=== PATIENT | female | born 1980 | race Caucasian/White ===

== ENCOUNTER 2020-01-31 17:08 | Emergency (ER) | payer MEDICAID ==
[~2020-01-31] VITALS: Ht 157.4 cm; Wt 77.6 kg
[2020-01-31] MEDS ORDERED: ROBAXIN-750750 MG PO (20:44)
[2020-01-31] MEDS ORDERED: IBUPROFEN600 MG PO (20:44)
== END 2020-01-31 21:00 | disposition home or self-care (01) ==
LOC: ED 17:08
DX: M43.6 Torticollis (principal); I10 Essential (primary) hypertension; E11.9 Type 2 diabetes mellitus without complications; Z88.8 Allergy status to other drugs, medicaments and biological substances; Z88.0 Allergy status to penicillin; Z98.890 Other specified postprocedural states; Z86.73 Personal history of transient ischemic attack (TIA), and cerebral infarction without residual deficits

== ENCOUNTER 2021-03-27 09:48 | Emergency (ER) | payer OTHER ==
[~2021-03-27] VITALS: Wt 79.8 kg
[~2021-03-27 09:48] MED LIST: IBUPROFEN600 MG PO; ROBAXIN-750750 MG PO
[2021-03-27] MEDS ORDERED: PREDNISONE20 M1 PO (14:25)
== END 2021-03-27 14:31 | disposition home or self-care (01) ==
LOC: ED 09:48
DX: M25.512 Pain in left shoulder (principal); F17.200 Nicotine dependence, unspecified, uncomplicated; Z88.0 Allergy status to penicillin; Z88.8 Allergy status to other drugs, medicaments and biological substances

== ENCOUNTER 2021-04-14 16:46 | Emergency (ER) | payer OTHER ==
[~2021-04-14] VITALS: Ht 157.4 cm; Wt 76.7 kg
[~2021-04-14 16:46] MED LIST changes: +PREDNISONE20 M1 PO
[2021-04-14 19:30] LABS: BASO % 0.3 % (0.0-1.0); EOS # 0.1 10*3/uL (0.0-0.4); EOS % 0.5 % (1.0-4.0); HEMATOCRIT 41.3 % (37.0-47.0); LYMPH # 3.4 10*3/uL (1.3-4.4); LYMPH % 30.8 % (27.0-41.0); MEAN CELL VOLUME 84.6 fl (81.0-99.0); MEAN CORPUSCULAR HGB 30.1 pg (27.0-31.0); MEAN CORPUSCULAR HGB CONC 35.6 g/dl (33.0-37.0); MEAN PLATELET VOLUME 10.4 fl (9.6-12.3); MONO # 0.6 10*3/uL (0.1-1.0); MONO % 5.6 % (3.0-9.0); NEUT # 6.8 10*3/uL (2.3-7.9); NEUT % 62.2 % (47.0-73.0); PLATELET COUNT AUTOMATED 224 10*3/uL (130-400); RED BLOOD COUNT 4.88 10*6/uL (4.10-5.10); RED CELL DISTRI WIDTH 12.4 % (0-14.5); WHITE BLOOD COUNT 10.9 10*3/uL (4.8-10.8)
[2021-04-14 19:54] LABS: ALBUMIN 3.4 gm/dl (3.1-4.5); ALKALINE PHOSPHATASE 100 U/L (45-117); BUN 5 mg/dl (7-24); CHLORIDE 102 mmol/L (98-107); CREATININE 0.67 mg/dL (0.55-1.02); POTASSIUM 3.4 mmol/L (3.5-5.1); SGOT/AST 14 IU/L (3-35); SGPT/ALT 29 U/L (12-78); SODIUM 133 mmol/L (136-145); TOTAL PROTEIN 7.1 gm/dL (6.4-8.2)
[2021-04-14] MEDS ORDERED: IBUPROFEN600 MG PO (23:06)
== END 2021-04-14 23:22 | disposition home or self-care (01) ==
LOC: ED 16:46
PROVIDERS: Physician Assistant
DX: S90.01XA Contusion of right ankle, initial encounter (principal); E11.65 Type 2 diabetes mellitus with hyperglycemia; W22.03XA Walked into furniture, initial encounter; Y93.89 Activity, other specified; Y92.89 Other specified places as the place of occurrence of the external cause; Y99.8 Other external cause status

== ENCOUNTER → 2021-04-27 | Outpatient (CLI) | payer OTHER | END | disposition home or self-care (01) | LOC: COVID19 16:33 | PROVIDERS: ATTEND Internal Medicine | DX: Z20.822 Contact with and (suspected) exposure to COVID-19 (principal) ==

== ENCOUNTER 2021-07-08 19:14 | Emergency (ER) | payer OTHER ==
[2021-07-08 19:42] LABS: BASO % 0.3 % (0.0-1.0); EOS # 0.1 10*3/uL (0.0-0.4); EOS % 0.5 % (1.0-4.0); HEMATOCRIT 42.1 % (37.0-47.0); LYMPH # 3.2 10*3/uL (1.3-4.4); LYMPH % 27.7 % (27.0-41.0); MEAN CELL VOLUME 83.2 fl (81.0-99.0); MEAN CORPUSCULAR HGB 29.6 pg (27.0-31.0); MEAN CORPUSCULAR HGB CONC 35.6 g/dl (33.0-37.0); MEAN PLATELET VOLUME 10.6 fl (9.6-12.3); MONO # 0.7 10*3/uL (0.1-1.0); NEUT # 7.6 10*3/uL (2.3-7.9); NEUT % 65.2 % (47.0-73.0); PLATELET COUNT AUTOMATED 236 10*3/uL (130-400); RED BLOOD COUNT 5.06 10*6/uL (4.10-5.10); RED CELL DISTRI WIDTH 11.5 % (0-14.5); WHITE BLOOD COUNT 11.7 10*3/uL (4.8-10.8)
[2021-07-08 19:53] LABS: ACT PARTIAL THROMBO TIME 26.1 SECONDS (20.0-32.1)
[2021-07-08 19:58] LABS: ALKALINE PHOSPHATASE 77 U/L (45-117); BUN 7 mg/dl (7-24); CHLORIDE 102 mmol/L (98-107); CREATININE 0.88 mg/dL (0.55-1.02); POTASSIUM 3.3 mmol/L (3.5-5.1); SGOT/AST 13 IU/L (3-35); SGPT/ALT 24 U/L (12-78); SODIUM 133 mmol/L (136-145); TOTAL PROTEIN 7.1 gm/dL (6.4-8.2)
== END 2021-07-09 01:02 | disposition home or self-care (01) ==
LOC: ED 19:14
PROVIDERS: Emergency Medicine
DX: R07.9 Chest pain, unspecified (principal); E11.9 Type 2 diabetes mellitus without complications; I10 Essential (primary) hypertension; Z88.0 Allergy status to penicillin; Z88.8 Allergy status to other drugs, medicaments and biological substances

== ENCOUNTER 2021-10-13 16:55 | Emergency (ER) | payer OTHER | END 2021-10-13 20:56 | disposition home or self-care (01) | LOC: ED 16:55 | DX: S93.401A Sprain of unspecified ligament of right ankle, initial encounter (principal); Z88.0 Allergy status to penicillin; Z88.8 Allergy status to other drugs, medicaments and biological substances; W18.39XA Other fall on same level, initial encounter; Y93.89 Activity, other specified; Y92.89 Other specified places as the place of occurrence of the external cause; Y99.8 Other external cause status ==

== ENCOUNTER 2021-12-18 18:20 | Emergency (ER) | payer OTHER ==
[~2021-12-18] VITALS: Ht 157.4 cm; Wt 79.8 kg
== END 2021-12-18 19:00 | disposition home or self-care (01) ==
LOC: ED 18:20
DX: S80.261A Insect bite (nonvenomous), right knee, initial encounter (principal); Z88.0 Allergy status to penicillin; Z88.8 Allergy status to other drugs, medicaments and biological substances; W57.XXXA Bitten or stung by nonvenomous insect and other nonvenomous arthropods, initial encounter; Y93.89 Activity, other specified; Y92.89 Other specified places as the place of occurrence of the external cause; Y99.9 Unspecified external cause status

== ENCOUNTER 2022-01-02 19:44 | Emergency (ER) | payer OTHER ==
[~2022-01-02] VITALS: Ht 157.4 cm; Wt 81.6 kg
== END 2022-01-02 22:31 | disposition home or self-care (01) ==
LOC: ED 19:44
DX: S83.8X1A Sprain of other specified parts of right knee, initial encounter (principal); Z88.0 Allergy status to penicillin; Z88.8 Allergy status to other drugs, medicaments and biological substances; X50.1XXA Overexertion from prolonged static or awkward postures, initial encounter; Y93.01 Activity, walking, marching and hiking; Y92.89 Other specified places as the place of occurrence of the external cause; Y99.9 Unspecified external cause status

== ENCOUNTER 2022-01-06 16:25 | Emergency (ER) | payer OTHER ==
[~2022-01-06] VITALS: Wt 81.6 kg
[2022-01-06] MEDS ORDERED: NAPROSYN500 MG PO (19:17)
== END 2022-01-06 19:49 | disposition home or self-care (01) ==
LOC: ED 16:25
DX: S83.91XA Sprain of unspecified site of right knee, initial encounter (principal); Z88.8 Allergy status to other drugs, medicaments and biological substances; Z88.0 Allergy status to penicillin; W19.XXXA Unspecified fall, initial encounter; Y93.89 Activity, other specified; Y92.89 Other specified places as the place of occurrence of the external cause; Y99.8 Other external cause status

== ENCOUNTER 2022-01-09 19:52 | Emergency (ER) | payer OTHER ==
[~2022-01-09 19:52] MED LIST changes: +NAPROSYN500 MG PO
[2022-01-09] MEDS ORDERED: SEPTDS PO (20:29)
[2022-01-09] MEDS ORDERED: CEPHALEXIN500 M1 PO (20:29)
== END 2022-01-09 20:46 | disposition home or self-care (01) ==
LOC: ED 19:52
DX: L02.214 Cutaneous abscess of groin (principal); Z88.0 Allergy status to penicillin; Z88.8 Allergy status to other drugs, medicaments and biological substances

== ENCOUNTER 2022-02-16 17:03 | Emergency (ER) | payer OTHER ==
[~2022-02-16] VITALS: Ht 157.4 cm; Wt 84.4 kg
[~2022-02-16 17:03] MED LIST changes: +ASPIRIN ADULT L81 M1 PO; +CEPHALEXIN500 M1 PO; +HUMALOG100 UNIT/1 SC; +LANTUS SOL100 UNIT/1 SC; +PREDNISONE50 MG PO; +SEPTDS PO; +VITAMIN D325 MCG PO; +ZITHROMAX500 MG PO
== END 2022-02-16 19:36 | disposition home or self-care (01) ==
LOC: ED 17:03
DX: M79.641 Pain in right hand (principal); Z88.0 Allergy status to penicillin; Z88.8 Allergy status to other drugs, medicaments and biological substances; Z98.51 Tubal ligation status; Z98.890 Other specified postprocedural states

== ENCOUNTER 2022-03-27 14:59 | Emergency (ER) | payer OTHER ==
[~2022-03-27] VITALS: Ht 157.4 cm; Wt 87.5 kg
== END 2022-03-27 17:14 | disposition home or self-care (01) ==
LOC: ED 14:59
DX: J10.1 Influenza due to other identified influenza virus with other respiratory manifestations (principal); Z20.822 Contact with and (suspected) exposure to COVID-19; Z88.0 Allergy status to penicillin; Z88.8 Allergy status to other drugs, medicaments and biological substances; Z98.51 Tubal ligation status; Z98.890 Other specified postprocedural states

== ENCOUNTER 2022-04-16 15:43 | Emergency (ER) | payer OTHER ==
[~2022-04-16] VITALS: Wt 84.4 kg
[~2022-04-16 15:43] MED LIST changes: +METFORMIN HCL500 M2 PO
[2022-04-16] MEDS ORDERED: LEVOFLOXACIN500 MG PO (19:50)
[2022-04-16] MEDS ORDERED: REGLAN5 MG PO (19:51)
== END 2022-04-16 23:53 | disposition home or self-care (01) ==
LOC: ED 15:43
DX: J01.90 Acute sinusitis, unspecified (principal); G93.31 Postviral fatigue syndrome; Z88.0 Allergy status to penicillin; Z88.8 Allergy status to other drugs, medicaments and biological substances; Z79.899 Other long term (current) drug therapy; Z98.890 Other specified postprocedural states; Z98.51 Tubal ligation status

== ENCOUNTER 2022-04-25 14:55 | Emergency (ER) | payer OTHER ==
[~2022-04-25] VITALS: Ht 157.4 cm; Wt 84.8 kg
[~2022-04-25 14:55] MED LIST changes: +LEVOFLOXACIN500 MG PO; +REGLAN5 MG PO
[2022-04-25] MEDS ORDERED: ZYRTEC10 M2 PO (21:47)
[2022-04-25] MEDS ORDERED: FLONASE ALLERG9.9 ML NAS (21:47)
[2022-04-25] MEDS ORDERED: ALBUTEROL2.5 MG/0.5 INH (21:47)
== END 2022-04-25 22:07 | disposition home or self-care (01) ==
LOC: ED 14:55
DX: J20.9 Acute bronchitis, unspecified (principal); E11.9 Type 2 diabetes mellitus without complications; Z88.0 Allergy status to penicillin; Z88.8 Allergy status to other drugs, medicaments and biological substances; Z79.899 Other long term (current) drug therapy; Z98.890 Other specified postprocedural states; Z98.51 Tubal ligation status

== ENCOUNTER 2022-05-13 17:29 | Emergency (ER) | payer OTHER ==
[~2022-05-13] VITALS: Wt 86.2 kg
[~2022-05-13 17:29] MED LIST changes: +ALBUTEROL2.5 MG/0.5 INH; +FLONASE ALLERG9.9 ML NAS; +ZYRTEC10 M2 PO
[2022-05-13] MEDS ORDERED: LOSARTAN POTASS25 M1 PO (19:13)
[2022-05-13] MEDS ORDERED: ROSUVASTATIN CA10 MG PO (19:14)
[2022-05-13] MEDS ORDERED: METHOCARBAMOL750 M1 PO (19:35)
[2022-05-13] MEDS ORDERED: NAPROXEN250 MG PO (19:35)
== END 2022-05-13 19:39 | disposition home or self-care (01) ==
LOC: ED 17:29
DX: S39.012A Strain of muscle, fascia and tendon of lower back, initial encounter (principal); Z88.0 Allergy status to penicillin; Z88.8 Allergy status to other drugs, medicaments and biological substances; Z79.899 Other long term (current) drug therapy; Z98.890 Other specified postprocedural states; Z98.51 Tubal ligation status; W18.39XA Other fall on same level, initial encounter; Y93.89 Activity, other specified; Y92.89 Other specified places as the place of occurrence of the external cause; Y99.8 Other external cause status

== ENCOUNTER 2022-05-27 13:21 | Emergency (ER) | payer OTHER ==
[~2022-05-27] VITALS: Ht 157.4 cm; Wt 90.3 kg
[~2022-05-27 13:21] MED LIST changes: +LOSARTAN POTASS25 M1 PO; +METHOCARBAMOL750 M1 PO; +NAPROXEN250 MG PO; +ROSUVASTATIN CA10 MG PO
[2022-05-27] MEDS ORDERED: NAPROSYN500 MG PO (14:40)
[2022-05-27] MEDS ORDERED: ZANAFLEX4 MG PO (14:40)
== END 2022-05-27 14:57 | disposition home or self-care (01) ==
LOC: ED 13:21
DX: S30.0XXA Contusion of lower back and pelvis, initial encounter (principal); E11.9 Type 2 diabetes mellitus without complications; I10 Essential (primary) hypertension; M79.7 Fibromyalgia; Z88.0 Allergy status to penicillin; Z88.8 Allergy status to other drugs, medicaments and biological substances; Z98.890 Other specified postprocedural states; Z98.51 Tubal ligation status; W01.0XXA Fall on same level from slipping, tripping and stumbling without subsequent striking against object, initial encounter; Y93.E5 Activity, floor mopping and cleaning; Y92.090 Kitchen in other non-institutional residence as the place of occurrence of the external cause; Y99.8 Other external cause status

== ENCOUNTER 2022-06-06 14:56 | Emergency (ER) | payer OTHER ==
[~2022-06-06] VITALS: Ht 157.4 cm; Wt 90.7 kg
[~2022-06-06 14:56] MED LIST changes: +ZANAFLEX4 MG PO
[2022-06-06 16:44] LABS: BILIRUBIN Negative (Negative); BLOOD 3+ (Negative); CLARITY Cloudy (Clear); COLOR Orange (Yellow); GLUCOSE 3+ (Negative); KETONE 1+ (Negative); LEUKO ESTERASE 1+ (Negative); NITRITE Negative (Negative); PH 5.5 (4.5-8.0); SPECIFIC GRAVITY >= 1.030 (1.001-1.030)
[2022-06-06 17:16] LABS: RBC TNTC rbc/hpf (0-2)
== END 2022-06-06 18:02 | disposition home or self-care (01) ==
LOC: ED 14:56
PROVIDERS: Nurse Practitioner Family
DX: N94.6 Dysmenorrhea, unspecified (principal); Z88.0 Allergy status to penicillin; Z88.8 Allergy status to other drugs, medicaments and biological substances; Z98.51 Tubal ligation status; Z98.890 Other specified postprocedural states

== ENCOUNTER 2022-06-11 15:10 | Emergency (ER) | payer OTHER ==
[~2022-06-11] VITALS: Ht 157.4 cm; Wt 90.7 kg
== END 2022-06-11 17:40 | disposition home or self-care (01) ==
LOC: ED 15:10
DX: N94.6 Dysmenorrhea, unspecified (principal); Z88.0 Allergy status to penicillin; Z88.8 Allergy status to other drugs, medicaments and biological substances; Z79.899 Other long term (current) drug therapy; Z98.51 Tubal ligation status; Z98.890 Other specified postprocedural states; F17.200 Nicotine dependence, unspecified, uncomplicated

== ENCOUNTER 2022-06-18 16:36 | Emergency (ER) | payer MEDICAID ==
[~2022-06-18] VITALS: Ht 157.4 cm; Wt 87.5 kg
[2022-06-18] MEDS ORDERED: VIBRAMYCIN HYC100 MG PO (18:19)
== END 2022-06-18 19:05 | disposition home or self-care (01) ==
LOC: ED 16:36
DX: J32.8 Other chronic sinusitis (principal); Z20.822 Contact with and (suspected) exposure to COVID-19; Z88.0 Allergy status to penicillin; Z88.8 Allergy status to other drugs, medicaments and biological substances; Z79.899 Other long term (current) drug therapy; Z98.890 Other specified postprocedural states; Z98.51 Tubal ligation status

== ENCOUNTER 2022-06-23 11:55 | Emergency (ER) | payer MEDICAID ==
[~2022-06-23] VITALS: Ht 157.4 cm; Wt 87.5 kg
[~2022-06-23 11:55] MED LIST changes: +VIBRAMYCIN HYC100 MG PO
== END 2022-06-23 13:49 | disposition home or self-care (01) ==
LOC: ED 11:55
DX: J40 Bronchitis, not specified as acute or chronic (principal); Z88.0 Allergy status to penicillin; Z88.8 Allergy status to other drugs, medicaments and biological substances; Z98.51 Tubal ligation status; Z98.890 Other specified postprocedural states; I10 Essential (primary) hypertension; E11.9 Type 2 diabetes mellitus without complications; Z86.73 Personal history of transient ischemic attack (TIA), and cerebral infarction without residual deficits

== ENCOUNTER 2022-06-29 12:50 | Emergency (ER) | payer MEDICAID ==
[~2022-06-29] VITALS: Ht 157.4 cm; Wt 87.5 kg
[2022-06-29 13:49] LABS: BILIRUBIN Negative (Negative); BLOOD 3+ (Negative); CLARITY Clear (Clear); GLUCOSE 3+ (Negative); KETONE Trace (Negative); LEUKO ESTERASE Negative (Negative); NITRITE Negative (Negative); UROBILINOGEN 0.2 E.U./dl (0.0-1.0)
[2022-06-29 13:52] LABS: BASO % 0.3 % (0.0-1.0); EOS # 0.2 10*3/uL (0.0-0.4); EOS % 1.1 % (1.0-4.0); HEMATOCRIT 42.3 % (37.0-47.0); LYMPH # 3.6 10*3/uL (1.3-4.4); LYMPH % 27.2 % (27.0-41.0); MEAN CELL VOLUME 85.6 fl (81.0-99.0); MEAN PLATELET VOLUME 10.2 fl (9.6-12.3); MONO # 0.6 10*3/uL (0.1-1.0); MONO % 4.3 % (3.0-9.0); NEUT # 8.8 10*3/uL (2.3-7.9); NEUT % 66.5 % (47.0-73.0); PLATELET COUNT AUTOMATED 213 10*3/uL (130-400); RED BLOOD COUNT 4.94 10*6/uL (4.10-5.10); RED CELL DISTRI WIDTH 12.4 % (0-14.5); WHITE BLOOD COUNT 13.3 10*3/uL (4.8-10.8)
[2022-06-29 14:08] LABS: ALKALINE PHOSPHATASE 51 U/L (46-116); BUN 6 mg/dl (9-23); CHLORIDE 100 mmol/L (98-107); SGPT/ALT 25 U/L (10-49); TOTAL PROTEIN 6.6 gm/dL (6.0-8.0)
[2022-06-29 14:17] LABS: COLOR Orange (Yellow); EPITHELIAL CELLS 21-30; RBC 41-50 rbc/hpf (0-2)
[2022-06-29] MEDS ORDERED: ONDANSETRON4 MG SL (14:19)
== END 2022-06-29 14:35 | disposition home or self-care (01) ==
LOC: ED 12:50
PROVIDERS: Nurse Practitioner Family
DX: R10.9 Unspecified abdominal pain (principal); R11.0 Nausea; Z88.0 Allergy status to penicillin; Z88.8 Allergy status to other drugs, medicaments and biological substances; Z79.899 Other long term (current) drug therapy; Z98.51 Tubal ligation status; Z98.890 Other specified postprocedural states

== ENCOUNTER 2022-07-02 16:09 | Emergency (ER) | payer MEDICAID ==
[~2022-07-02] VITALS: Ht 157.4 cm; Wt 87.5 kg
[~2022-07-02 16:09] MED LIST changes: +ONDANSETRON4 MG SL
[2022-07-02 17:32] LABS: BASO % 0.3 % (0.0-1.0); EOS % 0.3 % (1.0-4.0); HEMATOCRIT 45.1 % (37.0-47.0); LYMPH # 0.5 10*3/uL (1.3-4.4); LYMPH % 6.8 % (27.0-41.0); MEAN CELL VOLUME 84.1 fl (81.0-99.0); MEAN CORPUSCULAR HGB CONC 35.7 g/dl (33.0-37.0); MEAN PLATELET VOLUME 10.7 fl (9.6-12.3); MONO # 0.2 10*3/uL (0.1-1.0); MONO % 3.5 % (3.0-9.0); NEUT # 5.8 10*3/uL (2.3-7.9); NEUT % 88.6 % (47.0-73.0); PLATELET COUNT AUTOMATED 161 10*3/uL (130-400); RED BLOOD COUNT 5.36 10*6/uL (4.10-5.10); WHITE BLOOD COUNT 6.6 10*3/uL (4.8-10.8)
[2022-07-02 17:42] LABS: BILIRUBIN Negative (Negative); BLOOD 3+ (Negative); CLARITY Clear (Clear); COLOR Yellow (Yellow); GLUCOSE 2+ (Negative); KETONE 3+ (Negative); LEUKO ESTERASE Trace (Negative); NITRITE Negative (Negative); SPECIFIC GRAVITY >= 1.030 (1.001-1.030); UROBILINOGEN 0.2 E.U./dl (0.0-1.0)
[2022-07-02 17:46] LABS: ALKALINE PHOSPHATASE 46 U/L (46-116); BUN 13 mg/dl (9-23); CHLORIDE 102 mmol/L (98-107); POTASSIUM 4.1 mmol/L (3.4-5.1); SGPT/ALT 19 U/L (10-49); TOTAL PROTEIN 6.6 gm/dL (6.0-8.0)
[2022-07-02 17:59] LABS: BACTERIA 1+; RBC 41-50 rbc/hpf (0-2)
== END 2022-07-02 22:05 | disposition home or self-care (01) ==
LOC: ED 16:09
PROVIDERS: Internal Medicine
DX: B34.9 Viral infection, unspecified (principal); E11.9 Type 2 diabetes mellitus without complications; I10 Essential (primary) hypertension; M79.7 Fibromyalgia; E87.20 Acidosis, unspecified; R00.0 Tachycardia, unspecified; Z88.0 Allergy status to penicillin; Z88.8 Allergy status to other drugs, medicaments and biological substances; Z98.51 Tubal ligation status; Z98.890 Other specified postprocedural states; Z79.899 Other long term (current) drug therapy

== ENCOUNTER 2022-07-10 11:19 | Emergency (ER) | payer MEDICAID ==
[~2022-07-10] VITALS: Ht 157.4 cm; Wt 87.5 kg
[2022-07-10 12:02] LABS: BASO % 0.3 % (0.0-1.0); EOS # 0.1 10*3/uL (0.0-0.4); EOS % 0.9 % (1.0-4.0); HEMATOCRIT 39.1 % (37.0-47.0); LYMPH # 3.1 10*3/uL (1.3-4.4); LYMPH % 31.5 % (27.0-41.0); MEAN CELL VOLUME 84.8 fl (81.0-99.0); MEAN CORPUSCULAR HGB 30.6 pg (27.0-31.0); MEAN CORPUSCULAR HGB CONC 36.1 g/dl (33.0-37.0); MEAN PLATELET VOLUME 9.7 fl (9.6-12.3); MONO # 0.4 10*3/uL (0.1-1.0); NEUT # 6.2 10*3/uL (2.3-7.9); NEUT % 62.6 % (47.0-73.0); PLATELET COUNT AUTOMATED 247 10*3/uL (130-400); RED BLOOD COUNT 4.61 10*6/uL (4.10-5.10); RED CELL DISTRI WIDTH 12.4 % (0-14.5); WHITE BLOOD COUNT 9.9 10*3/uL (4.8-10.8)
[2022-07-10 12:13] LABS: ACT PARTIAL THROMBO TIME 26.5 SECONDS (20.0-32.1)
[2022-07-10 12:22] LABS: ALKALINE PHOSPHATASE 55 U/L (46-116); CHLORIDE 103 mmol/L (98-107); POTASSIUM 3.4 mmol/L (3.4-5.1); SGPT/ALT 27 U/L (10-49); TOTAL PROTEIN 6.5 gm/dL (6.0-8.0)
[2022-07-10 12:23] LABS: BUN < 5 mg/dl (9-23)
== END 2022-07-10 13:58 | disposition home or self-care (01) ==
LOC: ED 11:19
PROVIDERS: Physician Assistant
DX: S83.91XA Sprain of unspecified site of right knee, initial encounter (principal); S93.401A Sprain of unspecified ligament of right ankle, initial encounter; S96.911A Strain of unspecified muscle and tendon at ankle and foot level, right foot, initial encounter; S76.911A Strain of unspecified muscles, fascia and tendons at thigh level, right thigh, initial encounter; E11.9 Type 2 diabetes mellitus without complications; I10 Essential (primary) hypertension; M79.7 Fibromyalgia; Z88.0 Allergy status to penicillin; Z88.8 Allergy status to other drugs, medicaments and biological substances; Z98.890 Other specified postprocedural states; Z98.51 Tubal ligation status; X50.1XXA Overexertion from prolonged static or awkward postures, initial encounter; Y93.89 Activity, other specified; Y92.89 Other specified places as the place of occurrence of the external cause; Y99.8 Other external cause status

== ENCOUNTER 2022-07-18 14:44 | Emergency (ER) | payer MEDICAID ==
[~2022-07-18] VITALS: Wt 87.5 kg
[2022-07-18] MEDS ORDERED: AVPAK AZITHROM250 M1 PO (15:13)
== END 2022-07-18 15:16 | disposition home or self-care (01) ==
LOC: ED 14:44
DX: H66.92 Otitis media, unspecified, left ear (principal); J02.9 Acute pharyngitis, unspecified; F17.200 Nicotine dependence, unspecified, uncomplicated; Z88.0 Allergy status to penicillin; Z88.8 Allergy status to other drugs, medicaments and biological substances; Z79.899 Other long term (current) drug therapy; Z98.890 Other specified postprocedural states; Z98.51 Tubal ligation status

== ENCOUNTER → 2022-07-23 | Outpatient (CLI) | payer MEDICAID ==
[~2022-07-23] MED LIST changes: +AVPAK AZITHROM250 M1 PO; +MECLIZINE HCL25 M2 PO
[2022-07-23 11:14] LABS: BASO % 0.4 % (0.0-1.0); EOS # 0.1 10*3/uL (0.0-0.4); EOS % 0.7 % (1.0-4.0); HEMATOCRIT 45.7 % (37.0-47.0); LYMPH # 3.3 10*3/uL (1.3-4.4); LYMPH % 35.4 % (27.0-41.0); MEAN CELL VOLUME 86.1 fl (81.0-99.0); MEAN CORPUSCULAR HGB 29.8 pg (27.0-31.0); MEAN CORPUSCULAR HGB CONC 34.6 g/dl (33.0-37.0); MEAN PLATELET VOLUME 10.3 fl (9.6-12.3); MONO # 0.6 10*3/uL (0.1-1.0); MONO % 6.2 % (3.0-9.0); NEUT # 5.3 10*3/uL (2.3-7.9); PLATELET COUNT AUTOMATED 243 10*3/uL (130-400); RED BLOOD COUNT 5.31 10*6/uL (4.10-5.10); WHITE BLOOD COUNT 9.4 10*3/uL (4.8-10.8)
[2022-07-23 11:48] LABS: ALKALINE PHOSPHATASE 56 U/L (46-116); BUN 6 mg/dl (9-23); CHLORIDE 104 mmol/L (98-107); CHOLESTEROL 121 mg/dL (<200); LDL CHOLESTEROL 46 mg/dL (9-159); POTASSIUM 4.2 mmol/L (3.4-5.1); SGPT/ALT 28 U/L (10-49); TOTAL PROTEIN 7.2 gm/dL (6.0-8.0); TRIGLYCERIDES 129 mg/dl (<150)
[2022-07-24 11:07] LABS: CREATININE,URINE 103.8 mg/dL (Not Estab.)
== END | disposition home or self-care (01) ==
LOC: US 10:30 → MAMMO 10:30 → LAB 10:31 → MAMMO 11:30
PROVIDERS: Nurse Practitioner Family; ATTEND Nurse Practitioner Women's Health
DX: Z12.31 Encounter for screening mammogram for malignant neoplasm of breast (principal); E11.00 Type 2 diabetes mellitus with hyperosmolarity without nonketotic hyperglycemic-hyperosmolar coma (NKHHC); E78.1 Pure hyperglyceridemia; I15.2 Hypertension secondary to endocrine disorders; E78.2 Mixed hyperlipidemia

== ENCOUNTER 2022-07-27 09:13 | Emergency (ER) | payer MEDICAID ==
[~2022-07-27] VITALS: Ht 157.4 cm; Wt 87.5 kg
[~2022-07-27 09:13] MED LIST changes: -MECLIZINE HCL25 M2 PO
[2022-07-27 10:33] LABS: BASO % 0.5 % (0.0-1.0); EOS # 0.1 10*3/uL (0.0-0.4); EOS % 0.8 % (1.0-4.0); HEMATOCRIT 42.4 % (37.0-47.0); LYMPH # 2.4 10*3/uL (1.3-4.4); LYMPH % 30.8 % (27.0-41.0); MEAN CELL VOLUME 86.5 fl (81.0-99.0); MEAN CORPUSCULAR HGB 29.8 pg (27.0-31.0); MEAN CORPUSCULAR HGB CONC 34.4 g/dl (33.0-37.0); MEAN PLATELET VOLUME 10.7 fl (9.6-12.3); MONO # 0.5 10*3/uL (0.1-1.0); MONO % 6.3 % (3.0-9.0); NEUT # 4.8 10*3/uL (2.3-7.9); NEUT % 61.1 % (47.0-73.0); PLATELET COUNT AUTOMATED 183 10*3/uL (130-400); WHITE BLOOD COUNT 7.8 10*3/uL (4.8-10.8)
[2022-07-27 11:24] LABS: ALKALINE PHOSPHATASE 60 U/L (46-116); BETA-HCG, QUANT < 3.0 mIU/mL (0-10); BUN 7 mg/dl (9-23); CHLORIDE 104 mmol/L (98-107); LIPASE 57 U/L (12-53); POTASSIUM 4.1 mmol/L (3.4-5.1); SGPT/ALT 26 U/L (10-49); TOTAL PROTEIN 6.8 gm/dL (6.0-8.0)
[2022-07-27] MEDS ORDERED: ONDANSETRON4 MG SL (13:09)
[2022-07-27] MEDS ORDERED: MECLIZINE HCL25 M2 PO (13:09)
== END 2022-07-27 13:12 | disposition home or self-care (01) ==
LOC: ED 09:13
PROVIDERS: Emergency Medicine
DX: R42 Dizziness and giddiness (principal); Z88.0 Allergy status to penicillin; Z88.8 Allergy status to other drugs, medicaments and biological substances; Z79.899 Other long term (current) drug therapy; Z98.890 Other specified postprocedural states; Z98.51 Tubal ligation status

== ENCOUNTER 2022-08-11 12:47 | Emergency (ER) | payer MEDICAID ==
[~2022-08-11 12:47] MED LIST changes: +MECLIZINE HCL25 M2 PO
[2022-08-11] MEDS ORDERED: IBU800 M2 PO (13:14)
== END 2022-08-11 13:20 | disposition home or self-care (01) ==
LOC: ED 12:47
DX: N94.6 Dysmenorrhea, unspecified (principal); J02.9 Acute pharyngitis, unspecified; E11.9 Type 2 diabetes mellitus without complications; I10 Essential (primary) hypertension; M79.7 Fibromyalgia; Z88.0 Allergy status to penicillin; Z88.8 Allergy status to other drugs, medicaments and biological substances; Z98.51 Tubal ligation status; Z98.890 Other specified postprocedural states

== ENCOUNTER 2022-08-13 14:45 | Emergency (ER) | payer MEDICAID ==
[~2022-08-13] VITALS: Ht 157.4 cm; Wt 90.3 kg
[~2022-08-13 14:45] MED LIST changes: +IBU800 M2 PO
[2022-08-13] MEDS ORDERED: CEPHALEXIN500 M1 PO (17:48)
== END 2022-08-13 18:08 | disposition home or self-care (01) ==
LOC: ED 14:45
DX: J02.0 Streptococcal pharyngitis (principal); E11.9 Type 2 diabetes mellitus without complications; I10 Essential (primary) hypertension; M79.7 Fibromyalgia; Z88.0 Allergy status to penicillin; Z88.8 Allergy status to other drugs, medicaments and biological substances; Z98.51 Tubal ligation status; Z98.890 Other specified postprocedural states

== ENCOUNTER 2022-08-28 14:42 | Emergency (ER) | payer MEDICAID ==
[~2022-08-28] VITALS: Ht 152.4 cm; Wt 91.6 kg
== END 2022-08-28 19:57 | disposition home or self-care (01) ==
LOC: ED 14:42
DX: M54.32 Sciatica, left side (principal); Z88.0 Allergy status to penicillin; Z88.8 Allergy status to other drugs, medicaments and biological substances; Z79.899 Other long term (current) drug therapy; Z98.890 Other specified postprocedural states; Z98.51 Tubal ligation status

== ENCOUNTER 2022-09-04 14:06 | Emergency (ER) | payer MEDICAID ==
[~2022-09-04] VITALS: Ht 157.4 cm; Wt 91.2 kg
== END 2022-09-04 16:48 | disposition home or self-care (01) ==
LOC: ED 14:06
DX: G43.809 Other migraine, not intractable, without status migrainosus (principal); F41.9 Anxiety disorder, unspecified; Z88.0 Allergy status to penicillin; Z88.8 Allergy status to other drugs, medicaments and biological substances; Z79.899 Other long term (current) drug therapy; Z98.890 Other specified postprocedural states; Z98.51 Tubal ligation status

== ENCOUNTER 2022-09-24 18:30 | Emergency (ER) | payer MEDICAID ==
[~2022-09-24] VITALS: Ht 157.4 cm; Wt 91.2 kg
[2022-09-24 19:42] LABS: BASO % 0.3 % (0.0-1.0); EOS # 0.1 10*3/uL (0.0-0.4); EOS % 0.7 % (1.0-4.0); HEMATOCRIT 41.4 % (37.0-47.0); LYMPH # 2.5 10*3/uL (1.3-4.4); LYMPH % 24.9 % (27.0-41.0); MEAN CELL VOLUME 85.4 fl (81.0-99.0); MEAN CORPUSCULAR HGB 29.5 pg (27.0-31.0); MEAN CORPUSCULAR HGB CONC 34.5 g/dl (33.0-37.0); MEAN PLATELET VOLUME 10.2 fl (9.6-12.3); MONO # 0.6 10*3/uL (0.1-1.0); MONO % 6.2 % (3.0-9.0); NEUT # 6.7 10*3/uL (2.3-7.9); NEUT % 67.6 % (47.0-73.0); PLATELET COUNT AUTOMATED 213 10*3/uL (130-400); RED BLOOD COUNT 4.85 10*6/uL (4.10-5.10); RED CELL DISTRI WIDTH 11.8 % (0-14.5); WHITE BLOOD COUNT 9.9 10*3/uL (4.8-10.8)
[2022-09-24 20:03] LABS: ALKALINE PHOSPHATASE 59 U/L (46-116); BUN 7 mg/dl (9-23); CHLORIDE 103 mmol/L (98-107); POTASSIUM 3.2 mmol/L (3.4-5.1); SGPT/ALT 25 U/L (10-49); TOTAL PROTEIN 6.6 gm/dL (6.0-8.0)
== END 2022-09-25 00:17 | disposition home or self-care (01) ==
LOC: ED 18:30
PROVIDERS: Nurse Practitioner
DX: B34.9 Viral infection, unspecified (principal); Z20.822 Contact with and (suspected) exposure to COVID-19; E86.0 Dehydration; E87.6 Hypokalemia; E87.20 Acidosis, unspecified; E11.9 Type 2 diabetes mellitus without complications; Z88.0 Allergy status to penicillin; Z88.8 Allergy status to other drugs, medicaments and biological substances; Z79.899 Other long term (current) drug therapy; Z98.890 Other specified postprocedural states; Z98.51 Tubal ligation status

== ENCOUNTER 2022-09-30 09:43 | Emergency (ER) | payer MEDICAID ==
[~2022-09-30] VITALS: Ht 157.4 cm; Wt 91.2 kg
[2022-09-30] MEDS ORDERED: ZITHROMAX500 MG PO (12:18)
== END 2022-09-30 12:22 | disposition home or self-care (01) ==
LOC: ED 09:43
DX: J02.9 Acute pharyngitis, unspecified (principal); E11.9 Type 2 diabetes mellitus without complications; I10 Essential (primary) hypertension; M79.7 Fibromyalgia; Z88.0 Allergy status to penicillin; Z88.8 Allergy status to other drugs, medicaments and biological substances; Z98.51 Tubal ligation status; Z98.890 Other specified postprocedural states

== ENCOUNTER 2022-10-11 14:43 | Emergency (ER) | payer MEDICAID ==
[~2022-10-11] VITALS: Ht 157.4 cm; Wt 89.4 kg
[2022-10-11] MEDS ORDERED: CYCLOBENZAPRINE10 MG PO (16:39)
[2022-10-11] MEDS ORDERED: KETOROLAC10 MG PO (16:39)
== END 2022-10-11 16:51 | disposition home or self-care (01) ==
LOC: ED 14:43
DX: S16.1XXA Strain of muscle, fascia and tendon at neck level, initial encounter (principal); S39.012A Strain of muscle, fascia and tendon of lower back, initial encounter; M79.7 Fibromyalgia; Z88.0 Allergy status to penicillin; Z79.899 Other long term (current) drug therapy; Z79.82 Long term (current) use of aspirin; Z79.2 Long term (current) use of antibiotics; Z79.4 Long term (current) use of insulin; Z98.890 Other specified postprocedural states; X58.XXXA Exposure to other specified factors, initial encounter; Y93.89 Activity, other specified; Y92.89 Other specified places as the place of occurrence of the external cause; Y99.8 Other external cause status

== ENCOUNTER 2022-12-05 11:27 | Emergency (ER) | payer MEDICAID ==
[~2022-12-05] VITALS: Ht 157.4 cm; Wt 89.4 kg
[~2022-12-05 11:27] MED LIST changes: +CYCLOBENZAPRINE10 MG PO; +DRIZALMA SPRINK60 MG PO; +KETOROLAC10 MG PO
[2022-12-05 12:57] LABS: BASO % 0.3 % (0.0-1.0); EOS # 0.4 10*3/uL (0.0-0.4); EOS % 3.5 % (1.0-4.0); HEMATOCRIT 44.5 % (37.0-47.0); LYMPH # 2.3 10*3/uL (1.3-4.4); LYMPH % 20.9 % (27.0-41.0); MEAN CELL VOLUME 84.3 fl (81.0-99.0); MEAN CORPUSCULAR HGB 28.8 pg (27.0-31.0); MEAN CORPUSCULAR HGB CONC 34.2 g/dl (33.0-37.0); MEAN PLATELET VOLUME 10.2 fl (9.6-12.3); MONO # 0.5 10*3/uL (0.1-1.0); MONO % 4.9 % (3.0-9.0); NEUT # 7.6 10*3/uL (2.3-7.9); NEUT % 70.1 % (47.0-73.0); PLATELET COUNT AUTOMATED 229 10*3/uL (130-400); RED BLOOD COUNT 5.28 10*6/uL (4.10-5.10); RED CELL DISTRI WIDTH 12.4 % (0-14.5); WHITE BLOOD COUNT 10.8 10*3/uL (4.8-10.8)
[2022-12-05 13:16] LABS: ACT PARTIAL THROMBO TIME 27.1 SECONDS (20.0-32.1)
[2022-12-05 13:20] LABS: ALKALINE PHOSPHATASE 63 U/L (46-116); BETA-HCG, QUANT < 3.0 mIU/mL (3-10); BUN 8 mg/dl (9-23); CHLORIDE 105 mmol/L (98-107); LIPASE 37 U/L (12-53); POTASSIUM 3.7 mmol/L (3.4-5.1); SGPT/ALT 16 U/L (10-49); TOTAL PROTEIN 7.1 gm/dL (6.0-8.0)
== END 2022-12-05 14:10 | disposition home or self-care (01) ==
LOC: ED 11:27
PROVIDERS: Emergency Medicine
DX: K52.9 Noninfective gastroenteritis and colitis, unspecified (principal); R42 Dizziness and giddiness; E11.9 Type 2 diabetes mellitus without complications; I10 Essential (primary) hypertension; M79.7 Fibromyalgia; Z88.0 Allergy status to penicillin; Z88.8 Allergy status to other drugs, medicaments and biological substances; Z98.51 Tubal ligation status; Z98.890 Other specified postprocedural states

== ENCOUNTER 2023-01-04 18:03 | Emergency (ER) | payer MEDICAID ==
[~2023-01-04] VITALS: Ht 157.4 cm; Wt 88.5 kg
[2023-01-04] MEDS ORDERED: MELOXICAM15 MG PO (18:50)
[2023-01-05] MEDS ORDERED: TRIAMCINOLONE430 GM TD (17:52)
== END 2023-01-04 19:09 | disposition home or self-care (01) ==
LOC: ED 18:03
DX: S83.91XA Sprain of unspecified site of right knee, initial encounter (principal); M25.571 Pain in right ankle and joints of right foot; Z88.0 Allergy status to penicillin; Z88.8 Allergy status to other drugs, medicaments and biological substances; Z79.82 Long term (current) use of aspirin; Z79.899 Other long term (current) drug therapy; Z79.4 Long term (current) use of insulin; Z98.890 Other specified postprocedural states; Z98.51 Tubal ligation status; W18.39XA Other fall on same level, initial encounter; Y93.89 Activity, other specified; Y92.89 Other specified places as the place of occurrence of the external cause; Y99.8 Other external cause status

== ENCOUNTER 2023-01-05 17:18 | Emergency (ER) | payer MEDICAID ==
[~2023-01-05] VITALS: Ht 157.4 cm; Wt 88.5 kg
[~2023-01-05 17:18] MED LIST changes: +MELOXICAM15 MG PO
[2023-01-05] MEDS ORDERED: TRIAMCINOLONE430 GM TD (17:52)
== END 2023-01-05 18:12 | disposition home or self-care (01) ==
LOC: ED 17:18
DX: G56.02 Carpal tunnel syndrome, left upper limb (principal); R21 Rash and other nonspecific skin eruption; M25.561 Pain in right knee; E11.9 Type 2 diabetes mellitus without complications; I10 Essential (primary) hypertension; Z88.0 Allergy status to penicillin; Z88.8 Allergy status to other drugs, medicaments and biological substances; Z98.51 Tubal ligation status; Z98.890 Other specified postprocedural states

== ENCOUNTER 2023-01-12 16:45 | Emergency (ER) | payer MEDICAID ==
[~2023-01-12] VITALS: Ht 157.4 cm; Wt 88.5 kg
[~2023-01-12 16:45] MED LIST changes: +TRIAMCINOLONE430 GM TD
== END 2023-01-12 21:23 | disposition home or self-care (01) ==
LOC: ED 16:45
DX: S80.01XA Contusion of right knee, initial encounter (principal); M25.531 Pain in right wrist; E11.9 Type 2 diabetes mellitus without complications; I10 Essential (primary) hypertension; M79.7 Fibromyalgia; Z88.0 Allergy status to penicillin; Z88.8 Allergy status to other drugs, medicaments and biological substances; Z98.51 Tubal ligation status; Z98.890 Other specified postprocedural states; W10.8XXA Fall (on) (from) other stairs and steps, initial encounter; Y93.01 Activity, walking, marching and hiking; Y92.89 Other specified places as the place of occurrence of the external cause; Y99.8 Other external cause status

== ENCOUNTER → 2023-01-29 | Outpatient (CLI) | payer MEDICAID ==
[2023-01-29 15:56] LABS: BASO % 0.3 % (0.0-1.0); EOS # 0.1 10*3/uL (0.0-0.4); LYMPH # 2.5 10*3/uL (1.3-4.4); LYMPH % 36.2 % (27.0-41.0); MEAN CELL VOLUME 84.4 fl (81.0-99.0); MEAN CORPUSCULAR HGB 29.6 pg (27.0-31.0); MEAN PLATELET VOLUME 10.2 fl (9.6-12.3); MONO # 0.6 10*3/uL (0.1-1.0); MONO % 8.6 % (3.0-9.0); NEUT # 3.7 10*3/uL (2.3-7.9); NEUT % 53.5 % (47.0-73.0); PLATELET COUNT AUTOMATED 215 10*3/uL (130-400); RED CELL DISTRI WIDTH 12.2 % (0-14.5)
[2023-01-29 16:06] LABS: URINE CREATININE RANDOM 51.63 mg/dL
[2023-01-29 16:17] LABS: ALKALINE PHOSPHATASE 62 U/L (46-116); BUN 7 mg/dl (9-23); CHLORIDE 107 mmol/L (98-107); POTASSIUM 3.8 mmol/L (3.4-5.1); SGPT/ALT 21 U/L (10-49); TOTAL PROTEIN 6.9 gm/dL (6.0-8.0)
== END | disposition home or self-care (01) ==
LOC: LAB 15:32
PROVIDERS: ATTEND Nurse Practitioner Family
DX: E11.00 Type 2 diabetes mellitus with hyperosmolarity without nonketotic hyperglycemic-hyperosmolar coma (NKHHC) (principal)

== ENCOUNTER 2023-02-20 15:22 | Emergency (ER) | payer MEDICAID ==
[~2023-02-20] VITALS: Ht 157.4 cm; Wt 89.4 kg
[2023-02-20 16:53] LABS: BASO # 0.1 10*3/uL (0.0-0.1); BASO % 0.4 % (0.0-1.0); EOS # 0.3 10*3/uL (0.0-0.4); EOS % 2.3 % (1.0-4.0); HEMATOCRIT 39.9 % (37.0-47.0); LYMPH # 2.5 10*3/uL (1.3-4.4); LYMPH % 17.3 % (27.0-41.0); MEAN CORPUSCULAR HGB 29.1 pg (27.0-31.0); MEAN CORPUSCULAR HGB CONC 34.6 g/dl (33.0-37.0); MEAN PLATELET VOLUME 10.5 fl (9.6-12.3); MONO # 0.8 10*3/uL (0.1-1.0); MONO % 5.4 % (3.0-9.0); NEUT # 10.5 10*3/uL (2.3-7.9); NEUT % 74.2 % (47.0-73.0); PLATELET COUNT AUTOMATED 251 10*3/uL (130-400); RED BLOOD COUNT 4.75 10*6/uL (4.10-5.10); WHITE BLOOD COUNT 14.2 10*3/uL (4.8-10.8)
[2023-02-20 17:18] LABS: ALKALINE PHOSPHATASE 77 U/L (46-116); BUN 13 mg/dl (9-23); CHLORIDE 102 mmol/L (98-107); CPK 38 U/L (34-171); LIPASE 67 U/L (12-53); POTASSIUM 4.2 mmol/L (3.4-5.1); SGPT/ALT 10 U/L (10-49); TOTAL PROTEIN 7.5 gm/dL (6.0-8.0)
[2023-02-20 17:22] LABS: BILIRUBIN Negative (Negative); BLOOD Trace-Lysed (Negative); CLARITY Clear (Clear); COLOR Yellow (Yellow); GLUCOSE 3+ (Negative); KETONE 1+ (Negative); LEUKO ESTERASE Trace (Negative); NITRITE Negative (Negative); SPECIFIC GRAVITY >= 1.030 (1.001-1.030); UROBILINOGEN 0.2 E.U./dl (0.0-1.0)
[2023-02-20 17:28] LABS: RBC 0-2 rbc/hpf (0-2)
[2023-02-20 17:29] LABS: BACTERIA 1+
[2023-02-20 19:03] VITALS: BP 131/73
== END 2023-02-20 20:09 | disposition home or self-care (01) ==
LOC: ED 15:22
PROVIDERS: Nurse Practitioner Family
DX: G89.18 Other acute postprocedural pain (principal); R11.0 Nausea; F41.9 Anxiety disorder, unspecified; I10 Essential (primary) hypertension; M79.7 Fibromyalgia; E87.6 Hypokalemia; E11.65 Type 2 diabetes mellitus with hyperglycemia; E11.00 Type 2 diabetes mellitus with hyperosmolarity without nonketotic hyperglycemic-hyperosmolar coma (NKHHC); Z88.0 Allergy status to penicillin; Z88.8 Allergy status to other drugs, medicaments and biological substances; Z98.890 Other specified postprocedural states; Z98.51 Tubal ligation status; Z90.710 Acquired absence of both cervix and uterus

== ENCOUNTER 2023-04-10 15:47 | Emergency (ER) | payer MEDICAID ==
[~2023-04-10] VITALS: Ht 157.4 cm; Wt 89.4 kg
== END 2023-04-10 20:38 | disposition home or self-care (01) ==
LOC: ED 15:47
DX: B34.9 Viral infection, unspecified (principal); R11.0 Nausea; R51.9 Headache, unspecified; M79.7 Fibromyalgia; F41.9 Anxiety disorder, unspecified; I10 Essential (primary) hypertension; E87.6 Hypokalemia; E87.1 Hypo-osmolality and hyponatremia; E11.65 Type 2 diabetes mellitus with hyperglycemia; Z88.0 Allergy status to penicillin; Z88.8 Allergy status to other drugs, medicaments and biological substances; Z98.51 Tubal ligation status; Z98.890 Other specified postprocedural states; Z20.822 Contact with and (suspected) exposure to COVID-19

== ENCOUNTER 2023-04-12 11:38 | Emergency (ER) | payer MEDICAID ==
[~2023-04-12] VITALS: Wt 89.4 kg
== END 2023-04-12 15:03 | disposition home or self-care (01) ==
LOC: ED 11:38
DX: B34.9 Viral infection, unspecified (principal); M79.7 Fibromyalgia; F41.9 Anxiety disorder, unspecified; I10 Essential (primary) hypertension; E87.6 Hypokalemia; E87.1 Hypo-osmolality and hyponatremia; E11.65 Type 2 diabetes mellitus with hyperglycemia; Z20.822 Contact with and (suspected) exposure to COVID-19; Z88.0 Allergy status to penicillin; Z88.8 Allergy status to other drugs, medicaments and biological substances; Z98.890 Other specified postprocedural states; Z98.51 Tubal ligation status

== ENCOUNTER 2023-05-16 08:33 | Emergency (ER) | payer MEDICAID ==
[~2023-05-16] VITALS: Wt 89.4 kg
== END 2023-05-16 13:57 | disposition left against medical advice (07) ==
LOC: ED 08:33
DX: R05.9 Cough, unspecified (principal); R09.81 Nasal congestion; Z88.0 Allergy status to penicillin; Z88.8 Allergy status to other drugs, medicaments and biological substances; Z53.21 Procedure and treatment not carried out due to patient leaving prior to being seen by health care provider

== ENCOUNTER 2023-06-06 15:40 | Emergency (ER) | payer MEDICAID ==
[~2023-06-06] VITALS: Ht 157.4 cm; Wt 89.4 kg
[2023-06-06] MEDS ORDERED: VIBRAMYCIN100 MG PO (19:32)
== END 2023-06-06 19:49 | disposition home or self-care (01) ==
LOC: ED 15:40
DX: J32.9 Chronic sinusitis, unspecified (principal); Z20.822 Contact with and (suspected) exposure to COVID-19; E11.9 Type 2 diabetes mellitus without complications; I10 Essential (primary) hypertension; M79.7 Fibromyalgia; Z88.0 Allergy status to penicillin; Z88.8 Allergy status to other drugs, medicaments and biological substances; Z98.890 Other specified postprocedural states; Z98.51 Tubal ligation status

== ENCOUNTER 2023-06-20 15:32 | Emergency (ER) | payer MEDICAID ==
[~2023-06-20] VITALS: Ht 157.4 cm; Wt 89.4 kg
[~2023-06-20 15:32] MED LIST changes: +VIBRAMYCIN100 MG PO
[2023-06-20] MEDS ORDERED: AMOX-CLAV 875-1 EACH PO (15:58)
== END 2023-06-20 16:01 | disposition home or self-care (01) ==
LOC: ED 15:32
DX: H66.92 Otitis media, unspecified, left ear (principal); J02.9 Acute pharyngitis, unspecified; F41.9 Anxiety disorder, unspecified; I10 Essential (primary) hypertension; E87.6 Hypokalemia; E87.1 Hypo-osmolality and hyponatremia; Z86.73 Personal history of transient ischemic attack (TIA), and cerebral infarction without residual deficits; E11.65 Type 2 diabetes mellitus with hyperglycemia; M79.7 Fibromyalgia; Z88.0 Allergy status to penicillin; Z88.8 Allergy status to other drugs, medicaments and biological substances; Z98.890 Other specified postprocedural states; Z98.51 Tubal ligation status

== ENCOUNTER 2023-07-02 15:32 | Emergency (ER) | payer MEDICAID ==
[~2023-07-02] VITALS: Ht 157.4 cm; Wt 89.4 kg
[~2023-07-02 15:32] MED LIST changes: +AMOX-CLAV 875-1 EACH PO
[2023-07-02] MEDS ORDERED: DOXYCYCLINE HY100 M3 PO (16:06)
[2023-07-02] MEDS ORDERED: Tdap Vaccine 0.5 ML SYR (Adult Vaccine) IM ONE (16:10)
== END 2023-07-02 17:00 | disposition home or self-care (01) ==
LOC: ED 15:32
DX: S61.012A Laceration without foreign body of left thumb without damage to nail, initial encounter (principal); Z88.0 Allergy status to penicillin; Z88.8 Allergy status to other drugs, medicaments and biological substances; Z98.51 Tubal ligation status; Z98.890 Other specified postprocedural states; W26.0XXA Contact with knife, initial encounter; Y93.G3 Activity, cooking and baking; Y92.89 Other specified places as the place of occurrence of the external cause; Y99.8 Other external cause status

== ENCOUNTER 2023-07-23 23:53 | Emergency (ER) | payer MEDICAID ==
[~2023-07-23] VITALS: Wt 89.4 kg
[~2023-07-23 23:53] MED LIST changes: +DOXYCYCLINE HY100 M3 PO
== END 2023-07-24 03:00 | disposition home or self-care (01) ==
LOC: ED 23:53
DX: S66.912A Strain of unspecified muscle, fascia and tendon at wrist and hand level, left hand, initial encounter (principal); E78.5 Hyperlipidemia, unspecified; I10 Essential (primary) hypertension; F41.9 Anxiety disorder, unspecified; E87.6 Hypokalemia; E87.1 Hypo-osmolality and hyponatremia; E11.65 Type 2 diabetes mellitus with hyperglycemia; M79.7 Fibromyalgia; Z88.0 Allergy status to penicillin; Z88.8 Allergy status to other drugs, medicaments and biological substances; Z98.51 Tubal ligation status; Z98.890 Other specified postprocedural states; W01.0XXA Fall on same level from slipping, tripping and stumbling without subsequent striking against object, initial encounter; Y93.89 Activity, other specified; Y92.89 Other specified places as the place of occurrence of the external cause; Y99.8 Other external cause status

== ENCOUNTER → 2023-08-09 | Outpatient (CLI) | payer MEDICAID ==
[2023-08-09 11:05] LABS: BASO % 0.6 % (0.0-1.0); EOS % 0.8 % (1.0-4.0); HEMATOCRIT 41.2 % (37.0-47.0); LYMPH # 1.4 10*3/uL (1.3-4.4); LYMPH % 28.7 % (27.0-41.0); MEAN CELL VOLUME 83.2 fl (81.0-99.0); MEAN CORPUSCULAR HGB 28.5 pg (27.0-31.0); MEAN CORPUSCULAR HGB CONC 34.2 g/dl (33.0-37.0); MEAN PLATELET VOLUME 9.8 fl (9.6-12.3); MONO # 0.6 10*3/uL (0.1-1.0); NEUT # 2.9 10*3/uL (2.3-7.9); NEUT % 58.5 % (47.0-73.0); PLATELET COUNT AUTOMATED 180 10*3/uL (130-400); RED BLOOD COUNT 4.95 10*6/uL (4.10-5.10); RED CELL DISTRI WIDTH 12.4 % (0-14.5)
[2023-08-09 11:33] LABS: ALKALINE PHOSPHATASE 75 U/L (46-116); BUN 6 mg/dl (9-23); CHLORIDE 103 mmol/L (98-107); CHOLESTEROL 121 mg/dL (<200); LDL CHOLESTEROL 57 mg/dL (9-159); POTASSIUM 4.2 mmol/L (3.4-5.1); SGPT/ALT 33 U/L (5-49); TRIGLYCERIDES 147 mg/dl (<150)
[2023-08-09 12:20] LABS: URINE CREATININE RANDOM 197.46 mg/dL
== END | disposition home or self-care (01) ==
LOC: LAB 10:49
PROVIDERS: ATTEND Nurse Practitioner Family
DX: E11.00 Type 2 diabetes mellitus with hyperosmolarity without nonketotic hyperglycemic-hyperosmolar coma (NKHHC) (principal); E78.2 Mixed hyperlipidemia

== ENCOUNTER 2023-08-21 15:15 | Emergency (ER) | payer MEDICAID ==
[~2023-08-21] VITALS: Wt 64.4 kg
[2023-08-21] MEDS ORDERED: Albuterol Sulfate 2.5 MG/3 ML VIAL NEB ONE (15:30)
[2023-08-21] MEDS ORDERED: SODIUM CHLORIDE 0.9% 1,000 ML IV ONE (15:30)
[2023-08-21 15:46] LABS: BASO % 0.3 % (0.0-1.0); EOS # 0.1 10*3/uL (0.0-0.4); EOS % 1.3 % (1.0-4.0); HEMATOCRIT 44.1 % (37.0-47.0); LYMPH # 3.4 10*3/uL (1.3-4.4); LYMPH % 30.1 % (27.0-41.0); MEAN CELL VOLUME 83.4 fl (81.0-99.0); MEAN CORPUSCULAR HGB 28.2 pg (27.0-31.0); MEAN CORPUSCULAR HGB CONC 33.8 g/dl (33.0-37.0); MONO # 0.7 10*3/uL (0.1-1.0); MONO % 6.1 % (3.0-9.0); PLATELET COUNT AUTOMATED 244 10*3/uL (130-400); RED BLOOD COUNT 5.29 10*6/uL (4.10-5.10); RED CELL DISTRI WIDTH 12.6 % (0-14.5); WHITE BLOOD COUNT 11.2 10*3/uL (4.8-10.8)
[2023-08-21 16:14] LABS: ALKALINE PHOSPHATASE 70 U/L (46-116); BUN 10 mg/dl (9-23); CHLORIDE 104 mmol/L (98-107); POTASSIUM 3.4 mmol/L (3.4-5.1); SGPT/ALT 20 U/L (5-49); TOTAL PROTEIN 7.7 gm/dL (6.0-8.0)
[2023-08-21] MEDS ORDERED: LEVOFLOXACIN750 M2 PO (16:25)
[2023-08-21] MEDS ORDERED: VENT7GM INH (16:25)
[2023-08-21] MEDS ORDERED: PREDNISONE20 M1 PO (16:25)
== END 2023-08-21 16:29 | disposition home or self-care (01) ==
LOC: ED 15:15
PROVIDERS: Emergency Medicine
DX: J40 Bronchitis, not specified as acute or chronic (principal); R06.02 Shortness of breath; E11.9 Type 2 diabetes mellitus without complications; I10 Essential (primary) hypertension; M79.7 Fibromyalgia; Z88.0 Allergy status to penicillin; Z88.8 Allergy status to other drugs, medicaments and biological substances; Z98.51 Tubal ligation status; Z98.890 Other specified postprocedural states

== ENCOUNTER → 2023-11-23 | Outpatient (CLI) | payer MEDICAID ==
[~2023-11-23] MED LIST changes: +LEVOFLOXACIN750 M2 PO; +VENT7GM INH
[2023-11-23 09:33] LABS: BASO # 0.1 10*3/uL (0.0-0.1); BASO % 0.5 % (0.0-1.0); EOS # 0.2 10*3/uL (0.0-0.4); EOS % 1.7 % (1.0-4.0); HEMATOCRIT 40.5 % (37.0-47.0); LYMPH # 2.8 10*3/uL (1.3-4.4); LYMPH % 27.4 % (27.0-41.0); MEAN CELL VOLUME 83.3 fl (81.0-99.0); MEAN CORPUSCULAR HGB 29.2 pg (27.0-31.0); MEAN CORPUSCULAR HGB CONC 35.1 g/dl (33.0-37.0); MONO # 0.7 10*3/uL (0.1-1.0); MONO % 6.9 % (3.0-9.0); NEUT # 6.4 10*3/uL (2.3-7.9); NEUT % 63.1 % (47.0-73.0); PLATELET COUNT AUTOMATED 211 10*3/uL (130-400); RED BLOOD COUNT 4.86 10*6/uL (4.10-5.10); RED CELL DISTRI WIDTH 12.8 % (0-14.5); WHITE BLOOD COUNT 10.1 10*3/uL (4.8-10.8)
[2023-11-23 09:49] LABS: URINE CREATININE RANDOM 223.89 mg/dL
[2023-11-23 09:59] LABS: ALKALINE PHOSPHATASE 63 U/L (46-116); BUN 7 mg/dl (9-23); CHLORIDE 105 mmol/L (98-107); CHOLESTEROL 135 mg/dL (<200); LDL CHOLESTEROL 70 mg/dL (9-159); POTASSIUM 3.4 mmol/L (3.4-5.1); SGPT/ALT 21 U/L (5-49); TOTAL PROTEIN 7.2 gm/dL (6.0-8.0); TRIGLYCERIDES 126 mg/dl (<150)
== END | disposition home or self-care (01) ==
LOC: LAB 09:15
PROVIDERS: ATTEND Nurse Practitioner Family
DX: E78.2 Mixed hyperlipidemia (principal); E11.00 Type 2 diabetes mellitus with hyperosmolarity without nonketotic hyperglycemic-hyperosmolar coma (NKHHC)

== ENCOUNTER 2023-12-02 17:53 | Emergency (ER) | payer MEDICAID ==
[~2023-12-02] VITALS: Ht 157.4 cm; Wt 86.2 kg
[~2023-12-02 17:53] MED LIST changes: +CIPRO500 MG PO
[2023-12-02 19:18] LABS: BASO # 0.1 10*3/uL (0.0-0.1); BASO % 0.6 % (0.0-1.0); EOS # 0.2 10*3/uL (0.0-0.4); EOS % 1.9 % (1.0-4.0); HEMATOCRIT 40.7 % (37.0-47.0); LYMPH # 2.3 10*3/uL (1.3-4.4); LYMPH % 29.1 % (27.0-41.0); MEAN CELL VOLUME 86.4 fl (81.0-99.0); MEAN CORPUSCULAR HGB 29.1 pg (27.0-31.0); MEAN CORPUSCULAR HGB CONC 33.7 g/dl (33.0-37.0); MONO # 0.5 10*3/uL (0.1-1.0); MONO % 6.1 % (3.0-9.0); NEUT # 4.9 10*3/uL (2.3-7.9); PLATELET COUNT AUTOMATED 205 10*3/uL (130-400); RED BLOOD COUNT 4.71 10*6/uL (4.10-5.10); RED CELL DISTRI WIDTH 12.4 % (0-14.5); WHITE BLOOD COUNT 7.9 10*3/uL (4.8-10.8)
[2023-12-02 19:23] LABS: ACT PARTIAL THROMBO TIME 26.5 SECONDS (20.0-32.1)
[2023-12-02 19:36] LABS: ALKALINE PHOSPHATASE 69 U/L (46-116); BUN 10 mg/dl (9-23); CHLORIDE 105 mmol/L (98-107); POTASSIUM 3.7 mmol/L (3.4-5.1); SGPT/ALT 21 U/L (5-49); TOTAL PROTEIN 6.7 gm/dL (6.0-8.0)
== END 2023-12-02 20:55 | disposition home or self-care (01) ==
LOC: ED 17:53
PROVIDERS: Internal Medicine
DX: L60.0 Ingrowing nail (principal); E11.9 Type 2 diabetes mellitus without complications; I10 Essential (primary) hypertension; M79.7 Fibromyalgia; Z88.0 Allergy status to penicillin; Z88.8 Allergy status to other drugs, medicaments and biological substances; Z98.890 Other specified postprocedural states; Z98.51 Tubal ligation status; Z79.82 Long term (current) use of aspirin; Z79.4 Long term (current) use of insulin; Z79.899 Other long term (current) drug therapy; Z79.84 Long term (current) use of oral hypoglycemic drugs

== ENCOUNTER 2023-12-16 15:22 | Emergency (ER) | payer MEDICAID ==
[~2023-12-16] VITALS: Ht 157.4 cm; Wt 86.2 kg
[2023-12-16] MEDS ORDERED: TAMIFLU45 MG PO (18:18)
== END 2023-12-16 18:33 | disposition home or self-care (01) ==
LOC: ED 15:22
DX: J10.1 Influenza due to other identified influenza virus with other respiratory manifestations (principal); Z20.822 Contact with and (suspected) exposure to COVID-19; E11.9 Type 2 diabetes mellitus without complications; I10 Essential (primary) hypertension; M79.7 Fibromyalgia; Z88.0 Allergy status to penicillin; Z88.8 Allergy status to other drugs, medicaments and biological substances; Z98.51 Tubal ligation status; Z98.890 Other specified postprocedural states

== ENCOUNTER 2024-01-11 20:02 | Emergency (ER) | payer MEDICAID ==
[~2024-01-11] VITALS: Ht 157.4 cm; Wt 81.6 kg
[~2024-01-11 20:02] MED LIST changes: +TAMIFLU45 MG PO
[2024-01-11 21:33] LABS: BASO % 0.3 % (0.0-1.0); EOS # 0.2 10*3/uL (0.0-0.4); EOS % 1.9 % (1.0-4.0); HEMATOCRIT 43.4 % (37.0-47.0); LYMPH # 0.9 10*3/uL (1.3-4.4); LYMPH % 9.9 % (27.0-41.0); MEAN CORPUSCULAR HGB 29.5 pg (27.0-31.0); MEAN CORPUSCULAR HGB CONC 33.9 g/dl (33.0-37.0); MEAN PLATELET VOLUME 10.3 fl (9.6-12.3); MONO # 0.5 10*3/uL (0.1-1.0); MONO % 5.8 % (3.0-9.0); NEUT # 7.4 10*3/uL (2.3-7.9); NEUT % 81.5 % (47.0-73.0); PLATELET COUNT AUTOMATED 172 10*3/uL (130-400); RED BLOOD COUNT 4.99 10*6/uL (4.10-5.10); RED CELL DISTRI WIDTH 12.2 % (0-14.5)
[2024-01-11 21:48] LABS: BUN 9 mg/dl (9-23); CHLORIDE 101 mmol/L (98-107); POTASSIUM 3.6 mmol/L (3.4-5.1)
[2024-01-11] MEDS ORDERED: SODIUM CHLORIDE 0.9% 1,000 ML IV ONE (22:10)
[2024-01-12] MEDS ORDERED: AVPAK AZITHROM250 MG PO (01:06)
[2024-01-13] MEDS ORDERED: ASPIRIN ADULT L81 M1 PO (16:17)
[2024-01-13] MEDS ORDERED: TRULICITY4.5 MG/0.5 SQ (16:17)
[2024-01-13] MEDS ORDERED: INSULIN LI100 UNIT/2 SQ (16:17)
[2024-01-13] MEDS ORDERED: CELECOXIB100 M1 PO (16:17)
[2024-01-13] MEDS ORDERED: DULOXETINE HCL60 MG PO (16:18)
[2024-01-13] MEDS ORDERED: MECLIZINE HCL25 M2 PO (16:18)
[2024-01-13] MEDS ORDERED: CETIRIZINE HYDR10 MG PO (16:18)
[2024-01-13] MEDS ORDERED: VITAMIN D31 ML MC (16:19)
[2024-01-13] MEDS ORDERED: METFORMIN XR500 MG PO (16:19)
[2024-01-13] MEDS ORDERED: ALBUTEROL HFA 90MCG (16:20)
[2024-01-13] MEDS ORDERED: LANTUS SOL100 UNIT/1 SC (16:21)
== END 2024-01-12 01:10 | disposition home or self-care (01) ==
LOC: ED 20:02
PROVIDERS: Nurse Practitioner
DX: J02.9 Acute pharyngitis, unspecified (principal); Z20.822 Contact with and (suspected) exposure to COVID-19; R50.9 Fever, unspecified; M79.10 Myalgia, unspecified site; R11.0 Nausea; E11.9 Type 2 diabetes mellitus without complications; I10 Essential (primary) hypertension; Z88.0 Allergy status to penicillin; Z88.8 Allergy status to other drugs, medicaments and biological substances; Z98.51 Tubal ligation status; Z98.890 Other specified postprocedural states

== ENCOUNTER 2024-01-13 15:52 | Emergency (ER) | payer MEDICAID ==
[~2024-01-13] VITALS: Ht 157.4 cm; Wt 77.1 kg
[~2024-01-13 15:52] MED LIST changes: +AVPAK AZITHROM250 MG PO
[2024-01-13] MEDS ORDERED: INSULIN LI100 UNIT/2 SQ (16:17)
[2024-01-13] MEDS ORDERED: CELECOXIB100 M1 PO (16:17)
[2024-01-13] MEDS ORDERED: TRULICITY4.5 MG/0.5 SQ (16:17)
[2024-01-13] MEDS ORDERED: ASPIRIN ADULT L81 M1 PO (16:17)
[2024-01-13] MEDS ORDERED: CETIRIZINE HYDR10 MG PO (16:18)
[2024-01-13] MEDS ORDERED: DULOXETINE HCL60 MG PO (16:18)
[2024-01-13] MEDS ORDERED: MECLIZINE HCL25 M2 PO (16:18)
[2024-01-13] MEDS ORDERED: VITAMIN D31 ML MC (16:19)
[2024-01-13] MEDS ORDERED: METFORMIN XR500 MG PO (16:19)
[2024-01-13] MEDS ORDERED: ALBUTEROL HFA 90MCG (16:20)
[2024-01-13] MEDS ORDERED: LANTUS SOL100 UNIT/1 SC (16:21)
[2024-01-13] MEDS ORDERED: methylPREDNISolone sod succ 125 MG VIAL IV ONE (16:35)
[2024-01-13] MEDS ORDERED: IOHEXOL 350 MG/ML 100 ML VIAL IV ONE (16:50)
[2024-01-13] MEDS ORDERED: SODIUM CHLORIDE 0.9% 100 ML BAG IV ONE (16:50)
[2024-01-13 16:54] LABS: BASO % 0.4 % (0.0-1.0); EOS # 0.2 10*3/uL (0.0-0.4); EOS % 1.9 % (1.0-4.0); HEMATOCRIT 41.4 % (37.0-47.0); LYMPH # 1.5 10*3/uL (1.3-4.4); LYMPH % 18.6 % (27.0-41.0); MEAN CELL VOLUME 88.5 fl (81.0-99.0); MEAN CORPUSCULAR HGB 30.1 pg (27.0-31.0); MEAN CORPUSCULAR HGB CONC 34.1 g/dl (33.0-37.0); MEAN PLATELET VOLUME 10.5 fl (9.6-12.3); MONO # 0.8 10*3/uL (0.1-1.0); MONO % 9.3 % (3.0-9.0); NEUT # 5.6 10*3/uL (2.3-7.9); NEUT % 69.6 % (47.0-73.0); PLATELET COUNT AUTOMATED 159 10*3/uL (130-400); RED BLOOD COUNT 4.68 10*6/uL (4.10-5.10); RED CELL DISTRI WIDTH 12.2 % (0-14.5); WHITE BLOOD COUNT 8.1 10*3/uL (4.8-10.8)
[2024-01-13 17:33] LABS: CHLORIDE 104 mmol/L (98-107); POTASSIUM 3.2 mmol/L (3.4-5.1)
[2024-01-13 17:41] LABS: BUN < 5 mg/dl (9-23)
[2024-01-13] MEDS ORDERED: POTASSIUM CHLORIDE 20 MEQ TAB PO ONE (17:45)
== END 2024-01-13 22:27 | disposition home or self-care (01) ==
LOC: ED 15:52
PROVIDERS: Physician Assistant Medical
DX: U07.1 COVID-19 (principal); R06.00 Dyspnea, unspecified; R07.89 Other chest pain; M79.7 Fibromyalgia; E11.9 Type 2 diabetes mellitus without complications; Z86.73 Personal history of transient ischemic attack (TIA), and cerebral infarction without residual deficits; R06.02 Shortness of breath; I10 Essential (primary) hypertension; Z88.0 Allergy status to penicillin; Z88.8 Allergy status to other drugs, medicaments and biological substances; Z98.51 Tubal ligation status; Z98.890 Other specified postprocedural states

== ENCOUNTER 2024-01-27 16:14 | Emergency (ER) | payer MEDICAID ==
[~2024-01-27] VITALS: Ht 157.4 cm; Wt 77.1 kg
[~2024-01-27 16:14] MED LIST changes: +ALBUTEROL HFA 90MCG; +CELECOXIB100 M1 PO; +CETIRIZINE HYDR10 MG PO; +DULOXETINE HCL60 MG PO; +INSULIN LI100 UNIT/2 SQ; +METFORMIN XR500 MG PO; +TRULICITY4.5 MG/0.5 SQ; +VITAMIN D31 ML MC
[2024-01-27] MEDS ORDERED: ACETAMINOPHEN 325 MG TAB PO ONE (16:30)
== END 2024-01-27 18:24 | disposition home or self-care (01) ==
LOC: ED 16:14
DX: S63.501A Unspecified sprain of right wrist, initial encounter (principal); M25.511 Pain in right shoulder; M25.551 Pain in right hip; M25.571 Pain in right ankle and joints of right foot; E11.9 Type 2 diabetes mellitus without complications; I10 Essential (primary) hypertension; M79.7 Fibromyalgia; Z88.0 Allergy status to penicillin; Z88.8 Allergy status to other drugs, medicaments and biological substances; Z98.51 Tubal ligation status; Z98.890 Other specified postprocedural states; W10.8XXA Fall (on) (from) other stairs and steps, initial encounter; Y93.89 Activity, other specified; Y92.009 Unspecified place in unspecified non-institutional (private) residence as the place of occurrence of the external cause; Y99.8 Other external cause status

== ENCOUNTER 2024-02-10 15:50 | Emergency (ER) | payer MEDICAID ==
[~2024-02-10] VITALS: Ht 157.4 cm; Wt 88.5 kg
== END 2024-02-10 19:16 | disposition home or self-care (01) ==
LOC: ED 15:50
DX: B34.9 Viral infection, unspecified (principal); Z20.822 Contact with and (suspected) exposure to COVID-19; R11.2 Nausea with vomiting, unspecified; E11.9 Type 2 diabetes mellitus without complications; I10 Essential (primary) hypertension; M79.7 Fibromyalgia; Z88.0 Allergy status to penicillin; Z88.8 Allergy status to other drugs, medicaments and biological substances; Z98.890 Other specified postprocedural states; Z98.51 Tubal ligation status

== ENCOUNTER → 2024-03-02 | Outpatient (CLI) | payer MEDICAID ==
[2024-03-02 12:08] LABS: BASO # 0.1 10*3/uL (0.0-0.1); BASO % 0.6 % (0.0-1.0); EOS # 0.2 10*3/uL (0.0-0.4); LYMPH # 2.3 10*3/uL (1.3-4.4); LYMPH % 29.2 % (27.0-41.0); MEAN CELL VOLUME 85.8 fl (81.0-99.0); MEAN CORPUSCULAR HGB 29.4 pg (27.0-31.0); MEAN CORPUSCULAR HGB CONC 34.3 g/dl (33.0-37.0); MEAN PLATELET VOLUME 10.1 fl (9.6-12.3); MONO # 0.5 10*3/uL (0.1-1.0); MONO % 6.1 % (3.0-9.0); NEUT # 4.9 10*3/uL (2.3-7.9); NEUT % 61.8 % (47.0-73.0); PLATELET COUNT AUTOMATED 198 10*3/uL (130-400); RED BLOOD COUNT 4.66 10*6/uL (4.10-5.10); RED CELL DISTRI WIDTH 12.3 % (0-14.5); WHITE BLOOD COUNT 7.9 10*3/uL (4.8-10.8)
[2024-03-02 12:25] LABS: URINE CREATININE RANDOM 145.08 mg/dL
[2024-03-02 12:58] LABS: ALKALINE PHOSPHATASE 67 U/L (46-116); BUN 9 mg/dl (9-23); CHLORIDE 105 mmol/L (98-107); CHOLESTEROL 134 mg/dL (<200); LDL CHOLESTEROL 63 mg/dL (9-159); POTASSIUM 4.3 mmol/L (3.4-5.1); SGPT/ALT 21 U/L (5-49); TOTAL PROTEIN 6.8 gm/dL (6.0-8.0); TRIGLYCERIDES 108 mg/dl (<150)
== END | disposition home or self-care (01) ==
LOC: LAB 11:46
PROVIDERS: ATTEND Nurse Practitioner Family
DX: E78.2 Mixed hyperlipidemia (principal); E11.00 Type 2 diabetes mellitus with hyperosmolarity without nonketotic hyperglycemic-hyperosmolar coma (NKHHC)

== ENCOUNTER 2024-03-15 18:42 | Emergency (ER) | payer MEDICAID ==
[~2024-03-15] VITALS: Ht 157.4 cm; Wt 90.7 kg
[2024-03-15] MEDS ORDERED: Acetaminophen/Hydrocodone 5 MG/325 MG TABLET PO ONE (20:15)
[2024-03-15] MEDS ORDERED: NAPROSYN500 MG PO (20:28)
== END 2024-03-15 20:44 | disposition home or self-care (01) ==
LOC: ED 18:42
DX: S30.0XXA Contusion of lower back and pelvis, initial encounter (principal); F41.9 Anxiety disorder, unspecified; E11.65 Type 2 diabetes mellitus with hyperglycemia; I10 Essential (primary) hypertension; E87.6 Hypokalemia; E87.1 Hypo-osmolality and hyponatremia; M79.7 Fibromyalgia; Z86.73 Personal history of transient ischemic attack (TIA), and cerebral infarction without residual deficits; Z88.0 Allergy status to penicillin; Z88.8 Allergy status to other drugs, medicaments and biological substances; Z98.890 Other specified postprocedural states; Z98.51 Tubal ligation status; W10.8XXA Fall (on) (from) other stairs and steps, initial encounter; Y93.01 Activity, walking, marching and hiking; Y92.89 Other specified places as the place of occurrence of the external cause; Y99.8 Other external cause status

== ENCOUNTER 2024-03-25 18:56 | Emergency (ER) | payer MEDICAID ==
[~2024-03-25] VITALS: Ht 157.4 cm; Wt 88.5 kg
[2024-03-25] MEDS ORDERED: Ketorolac Tromethamine 60 MG/2 ML VIAL IM ONE (20:30)
== END 2024-03-25 19:38 | disposition home or self-care (01) ==
LOC: ED 18:56
DX: S90.02XA Contusion of left ankle, initial encounter (principal); S90.32XA Contusion of left foot, initial encounter; Z88.0 Allergy status to penicillin; Z88.8 Allergy status to other drugs, medicaments and biological substances; Z79.4 Long term (current) use of insulin; Z79.899 Other long term (current) drug therapy; Z79.84 Long term (current) use of oral hypoglycemic drugs; Z98.890 Other specified postprocedural states; Z98.51 Tubal ligation status; W51.XXXA Accidental striking against or bumped into by another person, initial encounter; Y93.89 Activity, other specified; Y92.098 Other place in other non-institutional residence as the place of occurrence of the external cause; Y99.8 Other external cause status

== ENCOUNTER 2024-04-06 17:04 | Emergency (ER) | payer MEDICAID ==
[~2024-04-06] VITALS: Ht 157.4 cm; Wt 92.6 kg
[2024-04-06] MEDS ORDERED: Ondansetron Hydrochloride 4 MG/2 ML VIAL IV ONE (18:00)
[2024-04-06] MEDS ORDERED: SODIUM CHLORIDE 0.9% 500 ML IV ONE (18:00)
[2024-04-06 18:30] LABS: BASO # 0.1 10*3/uL (0.0-0.1); BASO % 0.5 % (0.0-1.0); EOS # 0.1 10*3/uL (0.0-0.4); EOS % 1.1 % (1.0-4.0); HEMATOCRIT 45.4 % (37.0-47.0); MEAN CELL VOLUME 86.8 fl (81.0-99.0); MEAN CORPUSCULAR HGB 29.4 pg (27.0-31.0); MEAN CORPUSCULAR HGB CONC 33.9 g/dl (33.0-37.0); MEAN PLATELET VOLUME 10.1 fl (9.6-12.3); MONO # 0.7 10*3/uL (0.1-1.0); NEUT # 7.8 10*3/uL (2.3-7.9); NEUT % 63.1 % (47.0-73.0); PLATELET COUNT AUTOMATED 265 10*3/uL (130-400); RED BLOOD COUNT 5.23 10*6/uL (4.10-5.10); RED CELL DISTRI WIDTH 12.1 % (0-14.5); WHITE BLOOD COUNT 12.4 10*3/uL (4.8-10.8)
[2024-04-06 18:52] LABS: ALKALINE PHOSPHATASE 75 U/L (46-116); BUN 14 mg/dl (9-23); CHLORIDE 102 mmol/L (98-107); LIPASE 47 U/L (12-53); POTASSIUM 3.5 mmol/L (3.4-5.1); SGPT/ALT 18 U/L (5-49); TOTAL PROTEIN 7.6 gm/dL (6.0-8.0)
[2024-04-06 19:46] LABS: BILIRUBIN Negative (Negative); BLOOD 2+ (Negative); CLARITY Cloudy (Clear); COLOR Yellow (Yellow); GLUCOSE 2+ (Negative); KETONE Trace (Negative); LEUKO ESTERASE 3+ (Negative); NITRITE Negative (Negative); PH 5.5 (4.5-8.0); UROBILINOGEN 0.2 E.U./dl (0.0-1.0)
[2024-04-06 20:06] LABS: BACTERIA 4+; WBC TNTC wbc/hpf (0-5)
[2024-04-06 20:07] LABS: EPITHELIAL CELLS 0-2
[2024-04-06] MEDS ORDERED: SODIUM CHLORIDE 0.9% 1,000 ML IV ONE (20:25)
[2024-04-06] MEDS ORDERED: CIPRO500 MG PO (21:59)
== END 2024-04-06 22:06 | disposition home or self-care (01) ==
LOC: ED 17:04
PROVIDERS: Nurse Practitioner Family
DX: N39.0 Urinary tract infection, site not specified (principal); Z20.822 Contact with and (suspected) exposure to COVID-19; R00.0 Tachycardia, unspecified; R11.0 Nausea; R19.7 Diarrhea, unspecified; R50.9 Fever, unspecified; I10 Essential (primary) hypertension; F41.9 Anxiety disorder, unspecified; E11.65 Type 2 diabetes mellitus with hyperglycemia; E87.6 Hypokalemia; E87.1 Hypo-osmolality and hyponatremia; E11.00 Type 2 diabetes mellitus with hyperosmolarity without nonketotic hyperglycemic-hyperosmolar coma (NKHHC); M79.7 Fibromyalgia; Z88.0 Allergy status to penicillin; Z88.8 Allergy status to other drugs, medicaments and biological substances; Z86.73 Personal history of transient ischemic attack (TIA), and cerebral infarction without residual deficits; Z98.890 Other specified postprocedural states; Z98.51 Tubal ligation status

== ENCOUNTER → 2024-04-27 | Outpatient (CLI) | payer MEDICAID ==
[~2024-04-27] MED LIST changes: +GADOTERATE MEGLUMINE 10 MMOL/20 ML VIAL IV ONE; +SODIUM CHLORIDE 0.9% 50 ML IV ONE
== END | disposition home or self-care (01) ==
LOC: MRI 04-17 10:00
PROVIDERS: ATTEND Nurse Practitioner Family
DX: D49.0 Neoplasm of unspecified behavior of digestive system (principal)

== ENCOUNTER 2024-05-08 11:51 | Emergency (ER) | payer MEDICAID ==
[~2024-05-08] VITALS: Ht 157.4 cm; Wt 92.1 kg
[~2024-05-08 11:51] MED LIST changes: -GADOTERATE MEGLUMINE 10 MMOL/20 ML VIAL IV ONE; -SODIUM CHLORIDE 0.9% 50 ML IV ONE
== END 2024-05-08 13:07 | disposition home or self-care (01) ==
LOC: ED 11:51
DX: J06.9 Acute upper respiratory infection, unspecified (principal); Z20.822 Contact with and (suspected) exposure to COVID-19; E11.9 Type 2 diabetes mellitus without complications; I10 Essential (primary) hypertension; E78.5 Hyperlipidemia, unspecified; M79.7 Fibromyalgia; Z88.0 Allergy status to penicillin; Z88.8 Allergy status to other drugs, medicaments and biological substances; Z98.890 Other specified postprocedural states; Z98.51 Tubal ligation status

== ENCOUNTER 2024-05-22 17:27 | Emergency (ER) | payer MEDICAID ==
[~2024-05-22] VITALS: Ht 157.4 cm; Wt 91.6 kg
[2024-05-22] MEDS ORDERED: SODIUM CHLORIDE 0.9% 1,000 ML IV ONE (18:45)
[2024-05-22 19:13] LABS: BASO % 0.3 % (0.0-1.0); EOS # 0.2 10*3/uL (0.0-0.4); HEMATOCRIT 42.7 % (37.0-47.0); MEAN CELL VOLUME 84.7 fl (81.0-99.0); MEAN CORPUSCULAR HGB 29.4 pg (27.0-31.0); MEAN CORPUSCULAR HGB CONC 34.7 g/dl (33.0-37.0); MEAN PLATELET VOLUME 10.3 fl (9.6-12.3); MONO # 0.5 10*3/uL (0.1-1.0); MONO % 5.2 % (3.0-9.0); NEUT # 6.1 10*3/uL (2.3-7.9); NEUT % 62.1 % (47.0-73.0); PLATELET COUNT AUTOMATED 213 10*3/uL (130-400); RED BLOOD COUNT 5.04 10*6/uL (4.10-5.10); RED CELL DISTRI WIDTH 12.2 % (0-14.5); WHITE BLOOD COUNT 9.8 10*3/uL (4.8-10.8)
[2024-05-22 19:33] LABS: BUN 7 mg/dl (9-23); CHLORIDE 104 mmol/L (98-107); POTASSIUM 3.8 mmol/L (3.4-5.1)
[2024-05-22] MEDS ORDERED: PEPCID20 MG PO (20:29)
[2024-05-22] MEDS ORDERED: Ondansetron4 MG PO (20:29)
== END 2024-05-22 20:34 | disposition home or self-care (01) ==
LOC: ED 17:27
PROVIDERS: Nurse Practitioner
DX: A08.4 Viral intestinal infection, unspecified (principal); Z20.822 Contact with and (suspected) exposure to COVID-19; E11.9 Type 2 diabetes mellitus without complications; I10 Essential (primary) hypertension; M79.7 Fibromyalgia; Z88.0 Allergy status to penicillin; Z88.8 Allergy status to other drugs, medicaments and biological substances; Z98.51 Tubal ligation status; Z98.890 Other specified postprocedural states

== ENCOUNTER 2024-06-06 12:25 | Emergency (ER) | payer MEDICAID ==
[~2024-06-06] VITALS: Ht 157.4 cm; Wt 92.1 kg
[~2024-06-06 12:25] MED LIST changes: +Ondansetron4 MG PO; +PEPCID20 MG PO
[2024-06-06] MEDS ORDERED: AVPAK AZITHROM250 M1 PO (12:28)
[2024-06-06 12:43] LABS: BASO % 0.5 % (0.0-1.0); EOS # 0.1 10*3/uL (0.0-0.4); EOS % 1.6 % (1.0-4.0); MEAN CELL VOLUME 84.4 fl (81.0-99.0); MEAN CORPUSCULAR HGB 29.2 pg (27.0-31.0); MEAN CORPUSCULAR HGB CONC 34.6 g/dl (33.0-37.0); MEAN PLATELET VOLUME 10.3 fl (9.6-12.3); MONO # 0.5 10*3/uL (0.1-1.0); MONO % 6.5 % (3.0-9.0); NEUT # 5.2 10*3/uL (2.3-7.9); NEUT % 63.9 % (47.0-73.0); PLATELET COUNT AUTOMATED 199 10*3/uL (130-400); RED BLOOD COUNT 4.86 10*6/uL (4.10-5.10); RED CELL DISTRI WIDTH 11.9 % (0-14.5); WHITE BLOOD COUNT 8.2 10*3/uL (4.8-10.8)
[2024-06-06 13:22] LABS: BUN 10 mg/dl (9-23); CHLORIDE 105 mmol/L (98-107); CHOLESTEROL 143 mg/dL (<200); LDL CHOLESTEROL 67 mg/dL (9-159); POTASSIUM 4.1 mmol/L (3.4-5.1); TRIGLYCERIDES 143 mg/dl (<150)
== END 2024-06-06 13:27 | disposition home or self-care (01) ==
LOC: ED 12:25
PROVIDERS: Emergency Medicine
DX: J32.9 Chronic sinusitis, unspecified (principal); E11.9 Type 2 diabetes mellitus without complications; I10 Essential (primary) hypertension; M79.7 Fibromyalgia; Z88.0 Allergy status to penicillin; Z88.8 Allergy status to other drugs, medicaments and biological substances; Z98.51 Tubal ligation status; Z98.890 Other specified postprocedural states

== ENCOUNTER → 2024-06-08 | Outpatient (CLI) | payer MEDICAID ==
[2024-06-08 12:01] LABS: BASO % 0.4 % (0.0-1.0); EOS # 0.2 10*3/uL (0.0-0.4); EOS % 2.2 % (1.0-4.0); HEMATOCRIT 42.1 % (37.0-47.0); MEAN CELL VOLUME 86.4 fl (81.0-99.0); MEAN CORPUSCULAR HGB 29.4 pg (27.0-31.0); MEAN PLATELET VOLUME 10.3 fl (9.6-12.3); MONO # 0.6 10*3/uL (0.1-1.0); MONO % 6.4 % (3.0-9.0); NEUT # 5.2 10*3/uL (2.3-7.9); NEUT % 61.1 % (47.0-73.0); PLATELET COUNT AUTOMATED 190 10*3/uL (130-400); RED BLOOD COUNT 4.87 10*6/uL (4.10-5.10); RED CELL DISTRI WIDTH 12.2 % (0-14.5); WHITE BLOOD COUNT 8.5 10*3/uL (4.8-10.8)
[2024-06-08 13:00] LABS: ALKALINE PHOSPHATASE 60 U/L (46-116); BUN 10 mg/dl (9-23); CHLORIDE 102 mmol/L (98-107); CHOLESTEROL 142 mg/dL (<200); LDL CHOLESTEROL 68 mg/dL (9-159); SGPT/ALT 23 U/L (5-49); TOTAL PROTEIN 7.3 gm/dL (6.0-8.0); TRIGLYCERIDES 140 mg/dl (<150)
== END | disposition home or self-care (01) ==
LOC: LAB 11:37
PROVIDERS: ATTEND Nurse Practitioner Family
DX: E11.00 Type 2 diabetes mellitus with hyperosmolarity without nonketotic hyperglycemic-hyperosmolar coma (NKHHC) (principal); E78.2 Mixed hyperlipidemia; E55.9 Vitamin D deficiency, unspecified

== ENCOUNTER 2024-07-02 12:53 | Emergency (ER) | payer MEDICAID ==
[~2024-07-02] VITALS: Ht 162.5 cm; Wt 92.5 kg
[2024-07-02] MEDS ORDERED: Acetaminophen/Oxycodone 5 MG/325 MG TABLET PO ONE (13:35)
== END 2024-07-02 15:40 | disposition home or self-care (01) ==
LOC: ED 12:53
DX: S83.91XA Sprain of unspecified site of right knee, initial encounter (principal); E11.9 Type 2 diabetes mellitus without complications; I10 Essential (primary) hypertension; E78.5 Hyperlipidemia, unspecified; Z88.0 Allergy status to penicillin; Z79.899 Other long term (current) drug therapy; Z79.2 Long term (current) use of antibiotics; Z79.84 Long term (current) use of oral hypoglycemic drugs; Z98.890 Other specified postprocedural states; Z98.51 Tubal ligation status; X50.1XXA Overexertion from prolonged static or awkward postures, initial encounter; Y93.89 Activity, other specified; Y92.89 Other specified places as the place of occurrence of the external cause; Y99.8 Other external cause status

== ENCOUNTER 2024-07-14 07:34 | Emergency (ER) | payer MEDICAID ==
[~2024-07-14] VITALS: Ht 157.4 cm; Wt 92.5 kg
[2024-07-14] MEDS ORDERED: Albuterol Sulf/Ipratropium 3 ML VIAL NEB ONE (07:50)
[2024-07-14] MEDS ORDERED: VENT7GM INH (09:15)
== END 2024-07-14 09:24 | disposition home or self-care (01) ==
LOC: ED 07:34
DX: J32.9 Chronic sinusitis, unspecified (principal); Z20.822 Contact with and (suspected) exposure to COVID-19; E11.9 Type 2 diabetes mellitus without complications; I10 Essential (primary) hypertension; M79.7 Fibromyalgia; Z88.0 Allergy status to penicillin; Z88.8 Allergy status to other drugs, medicaments and biological substances; Z98.890 Other specified postprocedural states; Z98.51 Tubal ligation status

== ENCOUNTER 2024-07-28 19:00 | Emergency (ER) | payer MEDICAID ==
[~2024-07-28] VITALS: Ht 157.4 cm; Wt 92.1 kg
== END 2024-07-28 20:50 | disposition home or self-care (01) ==
LOC: ED 19:00
DX: M77.8 Other enthesopathies, not elsewhere classified (principal); F41.9 Anxiety disorder, unspecified; E87.6 Hypokalemia; E11.9 Type 2 diabetes mellitus without complications; I10 Essential (primary) hypertension; M79.7 Fibromyalgia; Z86.73 Personal history of transient ischemic attack (TIA), and cerebral infarction without residual deficits; Z98.51 Tubal ligation status; Z98.890 Other specified postprocedural states

== ENCOUNTER 2024-08-13 20:56 | Emergency (ER) | payer MEDICAID ==
[~2024-08-13] VITALS: Ht 157.4 cm; Wt 92.1 kg
[2024-08-13] MEDS ORDERED: Cyclobenzaprine Hydrochlorid 10 MG TAB PO ONE (21:50)
[2024-08-13] MEDS ORDERED: NAPROXEN 250 MG TAB PO ONE (21:50)
[2024-08-13] MEDS ORDERED: Acetaminophen/Hydrocodone 5 MG/325 MG TABLET PO ONE (23:15)
[2024-08-13] MEDS ORDERED: CYCLOBENZAPRINE10 MG PO (23:15)
== END 2024-08-13 23:31 | disposition home or self-care (01) ==
LOC: ED 20:56
DX: S46.911A Strain of unspecified muscle, fascia and tendon at shoulder and upper arm level, right arm, initial encounter (principal); S93.401A Sprain of unspecified ligament of right ankle, initial encounter; S70.01XA Contusion of right hip, initial encounter; S80.211A Abrasion, right knee, initial encounter; M79.671 Pain in right foot; I10 Essential (primary) hypertension; E11.9 Type 2 diabetes mellitus without complications; K21.9 Gastro-esophageal reflux disease without esophagitis; E78.5 Hyperlipidemia, unspecified; Z88.0 Allergy status to penicillin; Z88.8 Allergy status to other drugs, medicaments and biological substances; Z79.899 Other long term (current) drug therapy; Z79.4 Long term (current) use of insulin; Z79.82 Long term (current) use of aspirin; Z79.84 Long term (current) use of oral hypoglycemic drugs; Z98.890 Other specified postprocedural states; W18.09XA Striking against other object with subsequent fall, initial encounter; Y93.89 Activity, other specified; Y92.89 Other specified places as the place of occurrence of the external cause; Y99.8 Other external cause status

== ENCOUNTER 2024-09-12 23:44 | Emergency (ER) | payer MEDICAID ==
[~2024-09-12] VITALS: Ht 157.4 cm; Wt 96.6 kg
[2024-09-13] MEDS ORDERED: MUPIROCIN 15 GM TUBE T ONE (00:45)
[2024-09-13] MEDS ORDERED: Acetaminophen/Hydrocodone 5 MG/325 MG TABLET PO ONE (00:45)
== END 2024-09-13 00:50 | disposition home or self-care (01) ==
LOC: ED 23:44
DX: L55.0 Sunburn of first degree (principal); L01.00 Impetigo, unspecified; Z98.890 Other specified postprocedural states; Z86.73 Personal history of transient ischemic attack (TIA), and cerebral infarction without residual deficits; I10 Essential (primary) hypertension; E11.9 Type 2 diabetes mellitus without complications; F41.9 Anxiety disorder, unspecified; G43.909 Migraine, unspecified, not intractable, without status migrainosus; Z88.0 Allergy status to penicillin; Z88.8 Allergy status to other drugs, medicaments and biological substances; Z79.899 Other long term (current) drug therapy; Z79.82 Long term (current) use of aspirin; Z79.4 Long term (current) use of insulin

== ENCOUNTER 2024-11-30 21:17 | Emergency (ER) | payer MEDICAID ==
[~2024-11-30] VITALS: Ht 167.6 cm; Wt 81.6 kg
[2024-11-30] MEDS ORDERED: SODIUM CHLORIDE 0.9% 1,000 ML IV ONE (21:30)
[2024-11-30] MEDS ORDERED: Ondansetron Hydrochloride 4 MG/2 ML VIAL IV ONE (21:30)
[2024-11-30 21:43] LABS: BASO # 0.1 10*3/uL (0.0-0.1); BASO % 0.5 % (0.0-1.0); EOS # 0.2 10*3/uL (0.0-0.4); EOS % 2.1 % (1.0-4.0); MEAN CELL VOLUME 85.8 fl (81.0-99.0); MEAN CORPUSCULAR HGB 29.4 pg (27.0-31.0); MEAN PLATELET VOLUME 9.8 fl (9.6-12.3); MONO # 0.7 10*3/uL (0.1-1.0); MONO % 6.5 % (3.0-9.0); NEUT # 6.0 10*3/uL (2.3-7.9); NEUT % 58.6 % (47.0-73.0); NUCLEATED RED BLOOD CELL 0.0 % (0.0-0.0); NUCLEATED RED BLOOD CELL 0.0 10*3/uL (0.0-0.0); PLATELET COUNT AUTOMATED 238 10*3/uL (130-400); RED CELL DISTRI WIDTH 12.2 % (0-14.5)
[2024-11-30 22:15] LABS: BUN 10 mg/dl (9-23); SGPT/ALT 22 U/L (5-49)
[2024-12-01] MEDS ORDERED: Ondansetron4 MG PO (02:09)
[2024-12-01] MEDS ORDERED: Ondansetron Hydrochloride 4 MG/2 ML VIAL IV ONE (02:10)
== END 2024-12-01 02:17 | disposition home or self-care (01) ==
LOC: ED 21:17
PROVIDERS: Internal Medicine
DX: K52.9 Noninfective gastroenteritis and colitis, unspecified (principal); E11.65 Type 2 diabetes mellitus with hyperglycemia; R11.2 Nausea with vomiting, unspecified; Z88.0 Allergy status to penicillin; Z88.8 Allergy status to other drugs, medicaments and biological substances; Z79.899 Other long term (current) drug therapy; Z79.84 Long term (current) use of oral hypoglycemic drugs; Z79.4 Long term (current) use of insulin; Z79.82 Long term (current) use of aspirin; Z98.890 Other specified postprocedural states

== ENCOUNTER → 2024-12-15 | Outpatient (CLI) | payer MEDICAID ==
[~2024-12-15] MED LIST changes: +GADOTERATE MEGLUMINE 10 MMOL/20 ML VIAL IV ONE; +SODIUM CHLORIDE 0.9% 50 ML IV ONE
== END | disposition home or self-care (01) ==
LOC: MRI 11-06 09:00
PROVIDERS: ATTEND Nurse Practitioner Family
DX: D73.9 Disease of spleen, unspecified (principal)

== ENCOUNTER 2024-12-28 17:54 | Emergency (ER) | payer MEDICAID ==
[~2024-12-28] VITALS: Wt 93.0 kg
[~2024-12-28 17:54] MED LIST changes: -GADOTERATE MEGLUMINE 10 MMOL/20 ML VIAL IV ONE; -SODIUM CHLORIDE 0.9% 50 ML IV ONE
[2024-12-28] MEDS ORDERED: PREDNISONE20 M1 PO (19:45)
== END 2024-12-28 19:50 | disposition home or self-care (01) ==
LOC: ED 17:54
DX: H65.01 Acute serous otitis media, right ear (principal); I10 Essential (primary) hypertension; E11.9 Type 2 diabetes mellitus without complications; M79.7 Fibromyalgia; Z98.890 Other specified postprocedural states; Z98.51 Tubal ligation status; Z88.0 Allergy status to penicillin; Z88.8 Allergy status to other drugs, medicaments and biological substances

== ENCOUNTER 2025-02-11 14:34 | Emergency (ER) | payer MEDICAID ==
[~2025-02-11] VITALS: Ht 157.4 cm; Wt 93.9 kg
[2025-02-11] MEDS ORDERED: SODIUM CHLORIDE 0.9% 1,000 ML IV ONE (15:20)
[2025-02-11] MEDS ORDERED: diazePAM 10 MG/2 ML SYR IV ONE (15:25)
[2025-02-11 15:38] LABS: BASO # 0.0 10*3/uL (0.0-0.1); BASO % 0.3 % (0.0-1.0); EOS # 0.1 10*3/uL (0.0-0.4); EOS % 1.2 % (1.0-4.0); MEAN CELL VOLUME 85.7 fl (81.0-99.0); MEAN CORPUSCULAR HGB 29.8 pg (27.0-31.0); MEAN PLATELET VOLUME 9.9 fl (9.6-12.3); MONO # 0.5 10*3/uL (0.1-1.0); MONO % 6.5 % (3.0-9.0); NEUT # 4.6 10*3/uL (2.3-7.9); NEUT % 62.3 % (47.0-73.0); NUCLEATED RED BLOOD CELL 0.0 % (0.0-0.0); NUCLEATED RED BLOOD CELL 0.0 10*3/uL (0.0-0.0); PLATELET COUNT AUTOMATED 195 10*3/uL (130-400); RED CELL DISTRI WIDTH 12.0 % (0-14.5)
[2025-02-11 16:00] LABS: BUN 11 mg/dl (9-23)
[2025-02-11] MEDS ORDERED: HYDROmorphONE Hydrochloride 0.5 MG/0.5 ML SYRINGE IV ONE (16:50)
[2025-02-11] MEDS ORDERED: METHOCARBAMOL1000 MG PO (17:53)
== END 2025-02-11 17:58 | disposition home or self-care (01) ==
LOC: ED 14:34
PROVIDERS: Nurse Practitioner Family
DX: M79.7 Fibromyalgia (principal); E11.9 Type 2 diabetes mellitus without complications; Z88.0 Allergy status to penicillin; Z88.8 Allergy status to other drugs, medicaments and biological substances; Z79.899 Other long term (current) drug therapy; Z79.4 Long term (current) use of insulin; Z79.82 Long term (current) use of aspirin; Z98.890 Other specified postprocedural states

== ENCOUNTER 2025-02-23 20:04 | Emergency (ER) | payer MEDICAID ==
[~2025-02-23] VITALS: Ht 157.4 cm; Wt 95.3 kg
[~2025-02-23 20:04] MED LIST changes: +METHOCARBAMOL1000 MG PO
[2025-02-23] MEDS ORDERED: VRAYLAR1.5 MG PO (20:29)
[2025-02-23] MEDS ORDERED: WELLBUTRIN SR150 MG PO (20:29)
[2025-02-23] MEDS ORDERED: PRAZOSIN HCL2 MG PO (20:29)
[2025-02-23] MEDS ORDERED: CEPHALEXIN500 M1 PO (20:44)
== END 2025-02-23 20:48 | disposition home or self-care (01) ==
LOC: ED 20:04
DX: S30.860A Insect bite (nonvenomous) of lower back and pelvis, initial encounter (principal); L08.9 Local infection of the skin and subcutaneous tissue, unspecified; Z88.0 Allergy status to penicillin; Z88.8 Allergy status to other drugs, medicaments and biological substances; Z79.899 Other long term (current) drug therapy; Z79.4 Long term (current) use of insulin; Z79.82 Long term (current) use of aspirin; Z79.84 Long term (current) use of oral hypoglycemic drugs; Z98.890 Other specified postprocedural states; W57.XXXA Bitten or stung by nonvenomous insect and other nonvenomous arthropods, initial encounter; Y93.89 Activity, other specified; Y92.89 Other specified places as the place of occurrence of the external cause; Y99.8 Other external cause status

== ENCOUNTER 2025-03-30 14:30 | Emergency (ER) | payer MEDICAID ==
[~2025-03-30] VITALS: Ht 157.4 cm; Wt 97.1 kg
[~2025-03-30 14:30] MED LIST changes: +PRAZOSIN HCL2 MG PO; +VRAYLAR1.5 MG PO; +WELLBUTRIN SR150 MG PO
[2025-03-30] MEDS ORDERED: ZITHROMAX250 MG PO (14:51)
== END 2025-03-30 14:57 | disposition home or self-care (01) ==
LOC: ED 14:30
DX: J20.9 Acute bronchitis, unspecified (principal); E11.9 Type 2 diabetes mellitus without complications; I10 Essential (primary) hypertension; E78.5 Hyperlipidemia, unspecified; F32.A Depression, unspecified; M79.7 Fibromyalgia; Z98.51 Tubal ligation status; Z98.890 Other specified postprocedural states; Z88.0 Allergy status to penicillin; Z88.8 Allergy status to other drugs, medicaments and biological substances